=== PATIENT | male | born 1955 | race Caucasian/White ===

== ENCOUNTER → 2022-09-10 09:38 | Outpatient (BNVA) | payer MEDICARE, SELFPAY | PROVIDERS: Family Provider Family Medicine; PCP Nurse Practitioner Family; Visit Provider Thoracic Surgery (Cardiothoracic Vascular Surgery) | DX: I96 Gangrene, not elsewhere classified (principal); L89.892 Pressure ulcer of other site, stage 2 | CPT/HCPCS: 11042; 99213 ==

== ENCOUNTER 2023-02-13 10:14 | Outpatient (CLI) | payer MEDICARE, SELFPAY ==
[2023-02-13 11:53] LABS: Vancomycin Trough 39.7 ug/mL (10-15)
== END 2023-02-13 10:15 | disposition home or self-care (01) ==
PROVIDERS: Family Provider Family Medicine; PCP Nurse Practitioner Family; Visit Provider Student in an Organized Health Care Education/Training Program
DX: Z51.81 Encounter for therapeutic drug level monitoring (principal); Z79.2 Long term (current) use of antibiotics
CPT/HCPCS: 80202

== ENCOUNTER 2023-05-03 13:00 | Emergency (ER) | payer MEDICARE, MEDICAID, SELFPAY ==
[2023-05-03 13:03] VITALS: BP 144/78; PULSE 76; RESP 18; TEMP 36.8; O2SAT 98
--- NOTE | 2023-05-03 13:16 | ED_ITS ---
HPI - Male Genitourinary General: Chief complaint: Urogenital-Male Stated complaint: Landers- Bleeding Time Seen by Provider: 05/03/23 13:03 Source: patient Mode of arrival: EMS Limitations: no limitations History of Present Illness: Patient is a 68-year-old male who presents to the ED today with a complaint of penile bleeding and clogging Landers catheter. Patient arrives from his [place] correction and according to correction report patient's Landers has had to be changed multiple times over the past few days secondary to bleeding and clotting. Patient states he has had the Landers for a few weeks stating it was placed in attempts to help get a sacral ulcer to heal. Patient is wheelchair/bed bound due to bilateral Charcot deformities. long term states they removed catheter today in attempts to change and was unable to advance a new one. Complaint: other (hematuria/clots; clogged landers catheter) Onset (ago): day(s) Location: penis Context: indwelling catheter Associated symptoms: Reports hematuria; Deny vomiting Related Data: Sexually active: No Review of Systems Const: Denies: fever(s), chills, body aches, fatigue or malaise Card: Denies: chest pain Resp: Denies: dyspnea GI: Denies: abdominal pain, vomiting or diarrhea : Reports: hematuria; Denies: flank pain, testicular pain or scrotal swelling Musc: Denies: back pain Physical Exam Const: COMMON NORMALS: no acute distress, patient oriented x3, no limitations and alert GENERAL APPEARANCE: cooperative ORIENTATION/CONSCIOUSNESS: Yes awake, Yes oriented to person, Yes oriented to place and Yes oriented to time Resp: COMMON NORMALS: normal respiratory effort and clear to auscultation bilaterally AUSCULTATION: clear to auscultation bilaterally Cardio: COMMON NORMALS: regular rate and regular rhythm RATE: regular rate RHYTHM: regular rhythm GI: COMMON NORMALS: Normal to inspection, nondistended, normoactive bowel sounds present, Soft to palpation and non-tender PALPATION: Yes Soft to palpation : COMMON NORMALS: Yes no CVA tenderness BLADDER/KIDNEY EXAM: Yes no CVA tenderness PENIS: other (split glans) MEATUS: Blood at meatus present (blood/clot at urethral meatus ) SCROTUM: Yes testes descended bilaterally TESTES: Yes testicular lie normal Back/Pelvis: COMMON NORMALS: no CVA tenderness Neuro: COMMON NORMALS: patient oriented x3 SENSORIUM/ORIENTATION: Yes alert, Yes oriented to person, Yes oriented to place and Yes oriented to time Course Consultations: Consultation #1: [facility]-will accept patient Vital Signs: Vital signs: Vital Signs Temperature 98.2 F 05/03/23 13:03 Pulse Rate 71 05/03/23 16:00 Respiratory Rate 18 05/03/23 13:03 Blood Pressure 131/70 05/03/23 16:00 Pulse Oximetry 98 05/03/23 16:00 Oxygen Delivery Me thod Room Air 05/03/23 16:00 MDM - Male Medical Decision Making Attempted Landers insertion for bladder irrigation but we were not able to advance Landers. Bedside ultrasound imaging shows Landers not being able to advance into the bladder. CT imaging was thus obtained showing a 6 x 4 cm bladder mass that is suspicious for invasive prostate neoplasm versus bladder mass. He has acute appearing blood products involving the urethra from recent instrumentation. He has bilateral hydronephrosis and ureterectasis with evidence of bladder outlet obstruction. At this point we do not have urology and patient will require transfer. I have spoken to [facility] who will accept patient Lab Data 05/03/23 13:33 05/03/23 13:33 Laboratory Results WBC 11.96 10^3/uL (3.29-11.43) H 05/03/23 13:33 RBC 4.39 10^6/uL (3.85-5.65) 05/03/23 13:33 Hgb 12.40 g/dL (11.27-16.99) 05/03/23 13:33 Hct 39.3 % (37-53) 05/03/23 13:33 MCV 89.5 fl (82-101) 05/03/23 13:33 MCH 28.2 pg (27-33) 05/03/23 13:33 MCHC 31.6 g/dL (30-55) 05/03/23 13:33 RDW 17.1 % (12.1-15.1) H 05/03/23 13:33 Plt Count 95 10^3/cmm (157-399) L 05/03/23 13:33 MPV 12.5 fL (7.4-10.4) H 05/03/23 13:33 Neut % (Auto) 80.2 % 05/03/23 13:33 Lymph % (Auto) 9.9 % 05/03/23 13:33 [place] % (Auto) 8.3 % 05/03/23 13:33 Eos % (Auto) 0.5 % 05/03/23 13:33 Baso % (Auto) 0.3 % 05/03/23 13:33 Neut # (Auto) 9.61 10^3/uL (1.8-7.7) H 05/03/23 13:33 Lymph # (Auto) 1.2 10^3/uL (0.8-4.8) 05/03/23 13:33 [place] # (Auto) 1.0 10^3/uL (0.2-0.9) H 05/03/23 13:33 Eos # (Auto) 0.1 10^3/uL (0.0-0.8) 05/03/23 13:33 Baso # (Auto) 0.0 10^3/uL (0.0-0.1) 05/03/23 13:33 Nucleated RBC % (auto) 0 % 05/03/23 13:33 Nucleated RBCs # 0.0 /100WBC 05/03/23 13:33 Sodium 131 mmol/L (136-145) L 05/03/23 13:33 Potassium 4.1 mmol/L (3.5-5.1) 05/03/23 13:33 Chloride 95 mmol/L (98-107) L 05/03/23 13:33 Carbon Dioxide 28 mmol/L (22-29) 05/03/23 13:33 Anion Gap 12.1 (5-19) 05/03/23 13:33 BUN 24 mg/dL (8-23) H 05/03/23 13:33 Creatinine 0.9 mg/dL (0.7-1.2) 05/03/23 13:33 GFR Calculation 83.7 mL/min (90-130) L 05/03/23 13:33 Glucose 112 mg/dL (65-115) 05/03/23 13:33 Calculated Osmolality 277 mOsm/kg (285-295) L 05/03/23 13:33 Calcium 8.8 mg/dL (8.5-10.5) 05/03/23 13:33 Total Bilirubin 1.3 mg/dL (0.15-1.2) H 05/03/23 13:33 AST 39 U/L (0-40) 05/03/23 13:33 ALT 48 U/L (0-41) H 05/03/23 13:33 Alkaline Phosphatase 108 U/L (40-130) 05/03/23 13:33 Total Protein 7.8 g/dL (6.6-8.7) 05/03/23 13:33 Albumin 3.1 g/dL (3.5-5.2) L 05/03/23 13:33 Globulin 4.7 g/dL (1.3-4.6) H 05/03/23 13:33 Discharge Plan Discharge Patient Disposition: Xfer Short-Term Hosp Clinical Impression: Bladder outlet obstruction, Acute urinary retention, Bladder mass Condition: Stable Referrals: Meng Herrera FNP [Primary Care Provider] - Coding Level of Care Code ED Regulatory Manager for [facility]
[2023-05-03 13:47] LABS: Basophils % 0.3 %; Eosinophils # 0.1 10^3/uL (0.0-0.8); Eosinophils % 0.5 %; Hematocrit 39.3 % (37-53); Lymphocytes # 1.2 10^3/uL (0.8-4.8); Lymphocytes % 9.9 %; Mean Corpuscular HGB Conc 31.6 g/dL (30-55); Mean Corpuscular Hemoglobin 28.2 pg (27-33); Mean Corpuscular Volume 89.5 fl (82-101); Mean Platelet Volume 12.5 fL (7.4-10.4); Monocytes % 8.3 %; Neutrophils # 9.61 10^3/uL (1.8-7.7); Neutrophils % 80.2 %; Nucleated Red Blood Cells % 0 %; Platelet Count 95 10^3/cmm (157-399); Red Blood Count 4.39 10^6/uL (3.85-5.65); Red Cell Distribution Width 17.1 % (12.1-15.1); White Blood Count 11.96 10^3/uL (3.29-11.43)
[2023-05-03 14:06] LABS: Alanine Aminotransferase 48 U/L (0-41); Albumin Level 3.1 g/dL (3.5-5.2); Alkaline Phosphatase 108 U/L (40-130); Aspartate Amino Transferase 39 U/L (0-40); Blood Urea Nitrogen 24 mg/dL (8-23); Calcium 8.8 mg/dL (8.5-10.5); Carbon Dioxide 28 mmol/L (22-29); Chloride 95 mmol/L (98-107); Globulin 4.7 g/dL (1.3-4.6); Glomerular Filtration Rate 83.7 mL/min (90-130); Glucose 112 mg/dL (65-115); Osmolality Calculated 277 mOsm/kg (285-295); Sodium 131 mmol/L (136-145); Total Bilirubin 1.3 mg/dL (0.15-1.2); Total Protein 7.8 g/dL (6.6-8.7)
[2023-05-03 14:09] LABS: Anion Gap 12.1 (5-19); Potassium 4.1 mmol/L (3.5-5.1)
--- NOTE | 2023-05-03 14:49 | CT_ITS ---
WS: [id number] CT ABDOMEN PELVIS TECHNIQUE: Contrast-enhanced CT of the abdomen and pelvis with coronal and sagittal reformatted image s. CLINICAL INFORMATION: gross hematuria, cannot place landers COMPARISON: None. DLP: 1377.[address] scans at [facility] use at least one of these dose optimization techniques: automated e xposure control; mA and/or kV adjustment per patient size (includes targeted exams where dose is matc hed to clinical indication); or iterative reconstruction. FINDINGS: Lung bases are well aerated. Cirrhotic configuration to the liver. Enlarged LEFT hepatic lobe. Mild s plenomegaly. Portal vein and splenic vein appear patent. Splenic artery calcification. Normal gallbla dder. Normal caliber abdominal aorta. Aortic calcification. Normal renal parenchymal enhancement with parenchymal scarring. Mild bilateral hydronephrosis. Mild RIGHT ureterectasis. Mild LEFT ureterectas is. Diffuse bladder wall thickening with air in the nondependent bladder dome. Enlarged prostate with evidence of bladder outlet obstruction. Prostate measures 2.9 x 4.3 cm. Recomm end correlation PSA. Enhancing bladder mass in the dependent bladder measuring 6.1 x 3.9 cm suspiciou s for invasive prostate neoplasm versus bladder mass. Recommend correlation with cystoscopy. Small amount of acute appearing blood products involving the urethra from recent instrumentation. Sig moid diverticulosis. No evidence of acute diverticulitis. Distal sigmoid constipation. Normal caliber abdominal aorta. No abdominal or pelvic lymphadenopathy. No inguinal lymphadenopathy. IMPRESSION: 1. Mild bilateral hydronephrosis and ureterectasis worse in the RIGHT with evidence of bladder outle t obstruction. Enlarged prostate with adjacent enhancing intraluminal bladder mass measuring 6.0 x 3. 9 cm suspicious for invasive prostate neoplasm or bladder neoplasm. Recommend correlation with cystos copy. 2. Mild diffuse bladder wall thickening with a small amount of nondependent air in the bladder. 3. Blood products along the urethra compatible with recent instrumentation. 4. Enlarged cirrhotic liver. 5. Sigmoid constipation. 6. No evidence of abdominal pelvic or inguinal lymphadenopathy. Attempted notification NANCY Andujar at 05/03/2023 3:39 PM.
[2023-05-03] MEDS: iohexol 350 mg/mL 500 mL Btl (per mL) IV (15:02)
[2023-05-03 16:00] VITALS: BP 131/70; PULSE 71; O2SAT 98
[2023-05-03 16:24] VITALS: RESP 18
[2023-05-03] MEDS: ondansetron 2 mg/ML SDV 2 mL 4 MG IVP (16:24)
[2023-05-03] MEDS: morphine 4 mg/mL SDV 1 mL IVP (16:24)
--- NOTE | 2023-05-03 18:21 | PC.NURSE ---
REPORT CALLED TO JHOAN HUGGINS. PT WAITING ON TRANSPORTATION TO ACCEPTING FACILITY.
[2023-05-03 19:15] VITALS: RESP 19; O2SAT 96
[2023-05-03] MEDS: fentaNYL 50 mcg/mL INJ 2mL 75 MCG IVP (19:15)
[2023-05-03 20:00] VITALS: BP 110/71; PULSE 107; O2SAT 94
== END 2023-05-03 20:22 | disposition short-term general hospital (02) ==
PROVIDERS: Emergency Provider Physician Assistant; PCP Nurse Practitioner Family
DX: N32.0 Bladder-neck obstruction (principal); R33.9 Retention of urine, unspecified; N32.89 Other specified disorders of bladder
CPT/HCPCS: 36415; 74177; 80053; 85025; 96374; 96375; 99285; J2270; J2405; J3010; Q9967

== ENCOUNTER 2023-07-23 17:30 | Emergency (ER) | payer MEDICARE, MEDICAID, SELFPAY ==
--- NOTE | 2023-07-23 17:44 | CTR_ITS ---
PROCEDURE INFORMATION: Exam: CT Head Without Contrast Exam date and time: 07/23/2023 6:07 PM Age: 68 years old Clinical indication: Injury or trauma; Fall; Blunt trauma (contusions or hematomas); Consciousness not specified; Additional info: Pain trauma lac TECHNIQUE: Imaging protocol: Computed tomography of the head without contrast. Radiation optimization: All CT scans at this facility use at least one of these dose optimization techniques: automated exposure control; mA and/or kV adjustment per patient size (includes targeted exams where dose is matched to clinical indication); or iterative reconstruction. REPORTING DATA: Count of CT and Cardiac NM exams in prior 12 months: This patient has received [address] and 0 known cardiac nuclear medicine studies in the 12 months prior to the current study. COMPARISON: CT cervical spin wo con* [id number] 07/23/2023 6:07 PM RADIATION DOSE METRICS: Total DLP (mGy-cm): 981.4 FINDINGS: Brain: No acute intracranial abnormality. Cerebral ventricles: No ventriculomegaly. Paranasal sinuses: Partially visualized complete opacification of the right maxillary sinus with hyperdense fluid which may represent blood. Mastoid air cells: Visualized mastoid air cells are well aerated. Bones/joints: Right orbital floor fracture. Soft tissues: Soft tissue hematoma overlying the right orbit. The right globe appears intact. No intraconal fat stranding. CT/CT head wo con* [id number] IMPRESSION: 1. No acute intracranial abnormality. 2. Right orbital floor fracture. 3. Partially visualized complete opacification of the right maxillary sinus with hyperdense fluid which may represent blood. 4. Soft tissue hematoma overlying the right orbit. The right globe appears intact. No intraconal fat stranding.
--- NOTE | 2023-07-23 17:44 | CTR_ITS ---
PROCEDURE INFORMATION: Exam: CT Cervical Spine Without Contrast Exam date and time: 07/23/2023 6:07 PM Age: 68 years old Clinical indication: Neck pain TECHNIQUE: Imaging protocol: Computed tomography of the cervical spine without contrast. Radiation optimization: All CT scans at this facility use at least one of these dose optimization techniques: automated exposure control; mA and/or kV adjustment per patient size (includes targeted exams where dose is matched to clinical indication); or iterative reconstruction. REPORTING DATA: Count of CT and Cardiac NM exams in prior 12 months: This patient has received [address] and 0 known cardiac nuclear medicine studies in the 12 months prior to the current study. COMPARISON: CT head wo con* [id number] 07/23/2023 6:07 PM RADIATION DOSE METRICS: Total DLP (mGy-cm): 799.9 FINDINGS: Bones/joints: Multilevel anterior bridging osteophytes throughout the cervical and upper thoracic spine. Moderate to severe neural foraminal narrowing on left at C3-C4 and on the right at C5-C6 and on the left at C6-C7. Prominent posterior disc osteophyte complex C5-C6 with resulting spinal canal stenosis. Lungs: Lung apices are normal. Thyroid: Is a hypodense 1.3 cm nodule in the left thyroid lobe which is incompletely assessed on this examination and a dedicated thyroid ultrasound may be of benefit. Soft tissues: Unremarkable. CT/CT cervical spin wo con* [id number] IMPRESSION: Multilevel severe degenerative disc disease throughout the cervical spine including a prominent posterior disc osteophyte complex at C5-C6 with resulting spinal canal stenosis. COMMENTS: Consistent with the [employer]'s Incidental Findings Committee white paper (J Am Samantha Radiol 2015): In patients aged 35 years and older with an incidental thyroid nodule equal to or greater than 1.[address], MRI or extrathyroidal US, further evaluation with dedicated thyroid US is recommended for patients with normal life expectancy and without comorbidities. For smaller nodules without suspicious features, no further evaluation or follow up is recommended.
--- NOTE | 2023-07-23 17:46 | W.ED.FALL ---
HPI - Fall General: Chief Complaint: Fall Stated Complaint: RIGHT EYE/LEFT HAND LAC S/P FALL Time Seen by Provider: 07/23/23 17:32 History of Present Illness: Patient is a 68-year-old man that fell forward from the wheelchair striking his face on a wall. Patient denies LOC. He is unsure if he uses anticoagulation He has a laceration over the right brow and a skin tear to the left wrist Associated symptoms-after fall: Denies abdominal pain, chest pain, confusion, difficulty walking, headache(s), hematuria or neck pain Review of Systems General: Reports: 10 or more systems reviewed and unremarkable except in HPI and below Const: Denies: fever(s), chills, change in appetite, change in weight, fatigue or malaise Eyes: Denies: change in vision, eye discomfort, eye discharge or eye redness ENMT: Denies: throat pain, enlarged tonsils, odynophagia, hoarseness, ear or mastoid pain, ear discharge, change in hearing, tinnitus, nasal discharge, nasal congestion, post nasal drip or sinus pain Card: Denies: chest pain, palpitations, irregular heart rhythm, edema, dyspnea on exertion, orthopnea or leg pain with exertion Resp: Denies: dyspnea, productive cough, non-productive cough, wheezing, stridor or chest congestion GI: Denies: abdominal pain, nausea, vomiting, dysphagia, diarrhea, constipation, bloating, GI cramping or hematochezia : Denies: flank pain, dysuria, urinary frequency, urinary urgency, urinary hesitancy, oliguria or hematuria Musc: Denies: neck pain, back pain, extremity pain, joint pain, joint swelling, joint redness, joint warmth or muscle weakness Skin/Breast: Denies: rash, pruritus, erythema, photosensitivity or new lesions Neuro: Denies: headache(s), numbness in extremities, weakness in extremities, sensory changes, lack of coordination, difficulty walking, frequent falls, dizziness, confusion, Slurred speech present, difficulty communicating thoughts, seizure-like activity or involuntary movements Endo: Denies: polyuria, polydipsia or tired all the time [place]/Lymph: Denies: easy bruising or easy bleeding Physical Exam Const: COMMON NORMALS: no acute distress, patient oriented x3 and alert GENERAL APPEARANCE: cooperative ORIENTATION/CONSCIOUSNESS: Yes awake, Yes oriented to person, Yes oriented to place and Yes oriented to time HENMT: COMMON NORMALS: normocephalic and atraumatic HEAD & SCALP: normocephalic and atraumatic FACE & SINUS: normal facial exam MOUTH: Normal oral and palatal mucosa present THROAT: posterior oropharynx normal Eye: COMMON NORMALS: Equal, round and reactive pupils present, EOMs intact bilaterally, conjunctivae normal and no scleral icterus GENERAL EYE: appearance normal, both eyes and all related structures ALIGNMENT: Yes alignment normal PERIORBITAL: periorbital findings normal CONJUNCTIVA: Yes conjunctivae normal PUPIL: Yes Equal, round and reactive pupils present Neck/C-Spine: COMMON NORMALS: full ROM GENERAL: Yes normal visual inspection Lymph: LYMPHATIC: no lymphadenopathy noted Chest: COMMONS NORMALS: normal inspection of the chest Breast/axilla inspection: Yes no chest deformity, asymmetry, normal contours, no nodules, masses, tenderness Resp: COMMON NORMALS: normal respiratory effort, No retractions, No use of accessory muscles and clear to auscultation bilaterally EFFORT & INSPECTION: Yes able to speak in complete sentences and Yes symmetric chest movement AUSCULTATION: clear to auscultation bilaterally Cardio: COMMON NORMALS: regular rate, regular rhythm and Peripheral pulses 2+ throughout RATE: regular rate RHYTHM: regular rhythm PERIPHERAL PULSES: Peripheral pulses 2+ throughout GI: COMMON NORMALS: Normal to inspection, nondistended, normoactive bowel sounds present, Soft to palpation, non-tender and No hepatosplenomegaly present INSPECTION: Yes normal to inspection AUSCULTATION: Yes normoactive bowel sounds PALPATION: Yes Soft to palpation and Yes No hepatosplenomegaly present RECTAL EXAM: Yes deferred Extremity: COMMON NORMALS: normal to inspection GENERAL: Yes normal exam except as noted Neuro: COMMON NORMALS: patient oriented x3 SENSORIUM/ORIENTATION: Yes alert, Yes oriented to person, Yes oriented to place and Yes oriented to time CRANIAL NERVES: Yes CN normal except as noted Psych: COMMON NORMALS: mental status grossly normal, Normal thought process present, cooperative, activity/motor behavior normal, denies homicidal ideation and denies suicidal ideation THOUGHT PROCESS: Normal thought process present Skin: COMMON NORMALS: turgor normal SKIN IMAGES (MALE): 1. 3 cm lunate shaped laceration with underlying hematoma. No active bleeding 2. 10x 6 skin tear. no active bleeding 3. 2cm skin tear GENERAL SKIN EXAM: turgor normal TRAUMA: laceration and other (Skin tear) MDM - Fall Medical Decision Making Patient was evaluated in the emergency department after a fall from a wheelchair striking his face on a wall. Patient underwent CT imaging of his head and cervical spine. Imaging of the was unremarkable. Cervical spine CT revealed multilevel degenerative changes with severe spinal stenosis at C5/C6 due to a posterior disc osteophyte complex. There is a incidental finding of thyroid nodule measuring 1.3cm The CT head did reveal parts of the facial structures which revealed a displaced right orbital floor fracture and complete opacification of the right maxillary sinus. I spoke with Dr. Greenfield of the center for plastic surgery at [facility]. She will be happy to see the patient this . He needs to call Tuesday for an appointment. Furthermore, Dr. Greenfield is recommending patient follow-up with ophthalmology for a formal exam prior to being seen by Dr. Greenfield. Patient's left wrist skin tear was cleansed and covered. The laceration to the right brow was cleansed and approximated using Steri-Strips at patient's request Lab Data Radiology Impressions Cervical Spine CT 07/23/23 17:44 IMPRESSION: Multilevel severe degenerative disc disease throughout the cervical spine including a prominent posterior disc osteophyte complex at C5-C6 with resulting spinal canal stenosis. COMMENTS: Consistent with the [employer]'s Incidental Findings Committee white paper (J Am Samantha Radiol 2015): In patients aged 35 years and older with an incidental thyroid nodule equal to or greater than 1.[address], MRI or extrathyroidal US, further evaluation with dedicated thyroid US is recommended for patients with normal life expectancy and without comorbidities. For smaller nodules without suspicious features, no further evaluation or follow up is recommended. Head CT 07/23/23 17:44 IMPRESSION: 1. No acute intracranial abnormality. 2. Right orbital floor fracture. 3. Partially visualized complete opacification of the right maxillary sinus with hyperdense fluid which may represent blood. 4. Soft tissue hematoma overlying the right orbit. The right globe appears intact. No intraconal fat stranding. Face CT 07/23/23 19:21 IMPRESSION: 1. Displaced right orbital floor fracture. 2. Soft tissue hematoma overlying the right orbit with no underlying orbital fracture. 3. Complete opacification of the right maxillary sinus with hyperdense fluid which may represent blood. All radiology interpretation(s) finalized by discharge Discharge Plan Discharge Patient Disposition: Home Clinical Impression: Closed fracture of right orbital floor, Thyroid nodule, Hematoma, Laceration, Cervical spinal stenosis Condition: Stable Prescriptions: No Action acetaminophen 325 mg Tablet 325 - 500 mg PO QID PRN (Reason: Pain) ropinirole 1 mg Tablet 1 mg PO BEDTIME trazodone 50 mg Tablet 50 mg PO BEDTIME hydrocodone-acetaminophen 5-325 mg tablet 1 tab PO Q4H PRN (Reason: Pain) prednisone 5 mg Tablet 5 mg PO DAILY oxycodone-acetaminophen 5-325 mg Tablet 1 - 2 tab PO Q4H PRN (Reason: Pain) alprazolam 0.5 mg Tablet 0.5 mg PO Q6H PRN (Reason: Anxiety) tamsulosin 0.4 mg capsule 0.4 mg PO BEDTIME benzonatate 100 mg Capsule 100 mg PO Q8H PRN (Reason: Cough) pantoprazole 40 mg Tablet,Delayed Release (Dr/Ec) 40 mg PO DAILY nitroglycerin 0.4 mg Tablet, Sublingual 0.4 mg SUBLINGUAL Q5M PRN (Reason: Chest Pain) Rx Instructions: do not exceed 3 doses per episode gabapentin 300 mg Capsule 300 mg PO BID nystatin 100,000 unit/gram Powder See Rx Instructions .ROUTE .COMPLEX Rx Instructions: 1 applic topically to abdominal folds daily and evening shift for skin redness/ Maalox Maximum Strength 400-400-40 mg/5 mL Suspension 10 ml PO Q6H PRN (Reason: Indigestion) bisacodyl 5 mg Tablet 5 mg PO DAILY PRN (Reason: Constipation) Theragran-M Tablet 1 tab PO DAILY Lexapro 20 mg Tablet 20 mg PO DAILY Voltaren 1 % Gel See Rx Instructions .ROUTE .COMPLEX Rx Instructions: 2 g topically ;apply to bilateral hands twice daily for prophylaxis Discharge Orders: Discharge ED (Routine); Ordered 07/23/23 Ordered By: César Angulo Referrals: Giuseppe Peterson [Physician] - Meng Herrera FNP [Physician [facility]] - Discharge Diet: Advance as tolerated Discharge Activity: Resume usual activity Patient Instructions: Facial Fracture (ED), Pain Management Activity Restrictions/Additional Instructions: You have a orbital floor fracture. I have spoken with Dr. Meaghan Greenfield of the [facility] in [place]. She will be happy to see you on morning. You need to call her office Tuesday to make an appointment for . She can be reached at [phone]. Her address is [address] [place] [address], [place] [address] Prior to being seen by her you need to be evaluated by ophthalmology. Please call Dr. Giuseppe Peterson office Tuesday to set up an appointment for evaluation. With regards to the cervical spine findings, you need to discuss these findings and your symptomatology with your primary care doctor. He will likely need an MRI of your cervical spine to further evaluate these findings. Please call Tuesday for an appointment You also need to speak with your primary care doctor about the thyroid nodule that was identified on CT imaging. Further diagnostics may be warranted. Keep your skin tear on your wrist clean and dry. Daily dressing changes as necessary. Leave the Steri-Strips to the laceration over your right brow intact. These will come off in time. Please return to the emergency department for new, concerning, worsening symptoms Coding Level of Care Code ED Director Of Medical Staff Services for [facility]
[2023-07-23] MEDS: tetanus-dipt-pertussis 0.5 mL SDV IM (19:03)
--- NOTE | 2023-07-23 19:21 | CTR_ITS ---
PROCEDURE INFORMATION: Exam: CT Maxillofacial Without Contrast Exam date and time: 07/23/2023 7:28 PM Age: 68 years old Clinical indication: Injury or trauma; Blunt trauma (contusions or hematomas); Orbit/periorbital and maxilla; Right; Patient HX: Fall face first out of wheel chair. Orbital floor fracture with fluid filled maxillary sinus noted on head CT. ; Additional info: Facial fracture TECHNIQUE: Imaging protocol: Computed tomography of the face without contrast. Radiation optimization: All CT scans at this facility use at least one of these dose optimization techniques: automated exposure control; mA and/or kV adjustment per patient size (includes targeted exams where dose is matched to clinical indication); or iterative reconstruction. REPORTING DATA: Count of CT and Cardiac NM exams in prior 12 months: This patient has received [address] and 0 known cardiac nuclear medicine studies in the 12 months prior to the current study. COMPARISON: CT head wo con* [id number] 07/23/2023 6:07 PM RADIATION DOSE METRICS: Total DLP (mGy-cm): 583.88 FINDINGS: Orbital cavities: Orbits are normal. Globes are unremarkable. Bones/joints: Bridging anterior osteophytes at C3-C4. Displaced right orbital floor fracture. Paranasal sinuses: Complete opacification of the right maxillary sinus with hyperdense fluid which may represent blood. Soft tissues: Soft tissue hematoma overlying the right orbit with no underlying orbital fracture. CT/CT facial bones wo con* [id number] IMPRESSION: 1. Displaced right orbital floor fracture. 2. Soft tissue hematoma overlying the right orbit with no underlying orbital fracture. 3. Complete opacification of the right maxillary sinus with hyperdense fluid which may represent blood.
--- NOTE | 2023-07-27 10:01 | DCPLANNER ---
Message sent to Ophthalmology for follow up -sent to Giuspepe Peterson and Nicholas Rodarte
== END 2023-07-23 22:11 | disposition home or self-care (01) ==
PROVIDERS: Emergency Provider Nurse Practitioner
DX: S02.31XA Fracture of orbital floor, right side, initial encounter for closed fracture (principal); E04.1 Nontoxic single thyroid nodule; M48.02 Spinal stenosis, cervical region; S05.11XA Contusion of eyeball and orbital tissues, right eye, initial encounter; S01.81XA Laceration without foreign body of other part of head, initial encounter; W05.0XXA Fall from non-moving wheelchair, initial encounter; Z23 Encounter for immunization
CPT/HCPCS: 70450; 70486; 72125; 90471; 90715; 99284

== ENCOUNTER 2023-08-26 21:30 | Emergency (ER) | payer MEDICARE, MEDICAID, SELFPAY ==
[2023-08-26 21:38] VITALS: BP 148/88; PULSE 83; RESP 20; TEMP 36.6; O2SAT 97; BMI 29.7
--- NOTE | 2023-08-26 22:22 | ED.C_ITS ---
HPI - Psych General: Chief Complaint: Psychiatric Symptoms Stated Complaint: behavioral problems Time Seen by Provider: 08/26/23 21:34 History of Present Illness: 68-year-old male with anxiety, schizophrenia and mood disorder presents emergency room from local group home for nonspecific reason. According to EMS the group home reveals that patient was mad at the provider this morning but since ideation, homicidal ideation or hallucination at this time. Upon present emergency room, patient is awake and alert x 4 denies any chest pain, shortness of breath, abdominal pain, back pain, no blurry vision or change in vision. Any suicidal ideation or homicidal ideation at this time. Patient declining further testing and would like to be discharged back to the group home. Associated symptoms: Deny depression Review of Systems General: Reports: 10 or more systems reviewed and unremarkable except in HPI and below Const: Denies: fever(s), chills or body aches Card: Denies: chest pain, palpitations, irregular heart rhythm, edema, swelling of feet/ankles or lightheadedness Resp: Denies: dyspnea, productive cough, non-productive cough, wheezing or stridor GI: Denies: abdominal pain, nausea, vomiting, hematemesis, coffee ground emesis, dysphagia, heartburn, early satiety or diarrhea : Denies: flank pain, difficulty urinating, dysuria, urinary frequency, urinary urgency, urinary hesitancy, urinary dribbling or difficulty starting urination Musc: Denies: neck pain, back pain, extremity pain, extremity swelling, joint pain or joint swelling Skin/Breast: Denies: rash, pruritus, erythema or photosensitivity Neuro: Denies: headache(s), numbness in extremities, weakness in extremities, sensory changes, lack of coordination, difficulty walking, frequent falls, dizziness, vertigo, confusion or behavioral changes Psych: Denies: anxiety, depression, mood swings, panic attacks, sleeping less, sleeping more or hopelessness PFS ED PFSH: Medical History (Updated 08/26/23 @ 22:18 by Sherry Wright MD) Psychiatric care Physical Exam Const: COMMON NORMALS: no acute distress, average body habitus, patient oriented x3, no limitations, healthy appearing, alert and well nourished Neck/C-Spine: COMMON NORMALS: full ROM, no lymphadenopathy, supple, no meningeal signs, no JVD, Thyroid normal and No carotid bruits THYROID: Thyroid normal Chest: COMMONS NORMALS: normal inspection of the chest, normal palpation of entire chest wall, normal inspection of the breasts and normal palpation of the breasts Breast/axilla inspection: Yes normal inspection of the breasts BREAST/AXILLA PALPATION: Yes normal palpation of the breasts Resp: COMMON NORMALS: normal respiratory effort, No retractions, No use of accessory muscles, clear to auscultation bilaterally and percussion normal AUSCULTATION: clear to auscultation bilaterally PERCUSSION: percussion normal Cardio: COMMON NORMALS: no JVD GI: COMMON NORMALS: Normal to inspection, nondistended, normoactive bowel sounds present, Soft to palpation, non-tender, No hepatosplenomegaly present, no masses and no bruits PALPATION: Yes Soft to palpation and Yes No hepatosplenomegaly present Extremity: COMMON NORMALS: normal to inspection, full ROM, capillary refill normal, no joint enlargement, no clubbing, cyanosis or edema, no calf tenderness and no pedal edema Neuro: COMMON NORMALS: patient oriented x3 SENSORIUM/ORIENTATION: Yes alert MENINGEAL SIGNS: Yes no meningeal signs Psych: COMMON NORMALS: mental status grossly normal, Normal thought process present, cooperative, normal affect, speech normal, activity/motor behavior normal, denies hallucinations, denies homicidal ideation and denies suicidal ideation APPEARANCE: Yes grossly normal ATTITUDE: Yes calm, No Withdrawn affect present, No bizarre, No uncooperative, No evasive, No Guarded attititude/behavior present and No Belligerent attititude/behavior present ACTIVITY/MOTOR BEHAVIOR: Yes appropriate eye contact SPEECH: Yes normal speech MOOD & AFFECT: No depressed mood, No anxious, No euphoric, No irritable, No sad, No tearful, No fearful and No Labile affect present THOUGHT PROCESS: Normal thought process present THOUGHT CONTENT: Yes Normal thought content present ATTENTION/CONCENTRATION: Yes attention grossly intact Course Vital Signs: Vital signs: Vital Signs Temperature 97.8 F 08/26/23 21:38 Pulse Rate 94 08/27/23 00:51 Respiratory Rate 16 08/27/23 00:51 Blood Pressure 158/137 08/27/23 00:51 Pulse Oximetry 94 08/27/23 00:51 MDM - Psych Medical Decision Making Patient made comfortable emergency room. No acute distress. He continues to d enies any suicidal ideation homicidal ideation, headache or blurry vision at this time. Patient refused any further testing at this time would like to be discharged back to group home. Several attempts were made by the charge nurse to contact group home for any further information or requirements needed for patient's management. Differential Diagnosis Likely acute psychosis, chronic schizophrenia, suicidal ideation, bipolar disorder, depression, drug-induced psychotic disorder and acute anxiety No radiology studies performed this visit Discharge Plan Discharge Patient Disposition: Home Clinical Impression: Mood disorder Condition: Stable Prescriptions: No Action acetaminophen 325 mg Tablet 325 - 500 mg PO QID PRN (Reason: Pain) ropinirole 1 mg Tablet 1 mg PO BEDTIME trazodone 50 mg Tablet 50 mg PO BEDTIME hydrocodone-acetaminophen 5-325 mg tablet 1 tab PO Q4H PRN (Reason: Pain) prednisone 5 mg Tablet 5 mg PO DAILY oxycodone-acetaminophen 5-325 mg Tablet 1 - 2 tab PO Q4H PRN (Reason: Pain) alprazolam 0.5 mg Tablet 0.5 mg PO Q6H PRN (Reason: Anxiety) tamsulosin 0.4 mg capsule 0.4 mg PO BEDTIME benzonatate 100 mg Capsule 100 mg PO Q8H PRN (Reason: Cough) pantoprazole 40 mg Tablet,Delayed Release (Dr/Ec) 40 mg PO DAILY nitroglycerin 0.4 mg Tablet, Sublingual 0.4 mg SUBLINGUAL Q5M PRN (Reason: Chest Pain) Rx Instructions: do not exceed 3 doses per episode gabapentin 300 mg Capsule 300 mg PO BID nystatin 100,000 unit/gram Powder See Rx Instructions .ROUTE .COMPLEX Rx Instructions: 1 applic topically to abdominal folds daily and evening shift for skin redness/ Maalox Maximum Strength 400-400-40 mg/5 mL Suspension 10 ml PO Q6H PRN (Reason: Indigestion) bisacodyl 5 mg Tablet 5 mg PO DAILY PRN (Reason: Constipation) Theragran-M Tablet 1 tab PO DAILY Lexapro 20 mg Tablet 20 mg PO DAILY Voltaren 1 % Gel See Rx Instructions .ROUTE .COMPLEX Rx Instructions: 2 g topically ;apply to bilateral hands twice daily for prophylaxis Discharge Orders: Discharge ED (Routine); Ordered 08/26/23 Ordered By: Sherry Wright Discharge Diet: Advance as tolerated Discharge Activity: Resume usual activity Patient Instructions: Opioid Safety, Pain Management Coding Level of Care Code 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
--- NOTE | 2023-08-26 23:07 | PC.NURSE ---
I have called and spoke with the charge nurse at [facility], to get some background on why the patient was sent to our ER. I explained that the doctor in the ER has evaluated the patient and has no reason to work him up or send him to [place] for psych evaluation. The charge nurse at [facility] states that their facility contacted [facility] this morning after the patient became angry with his doctor and cursed and threatened to run over his foot with a wheelchair. The charge nurse stated that he has been accepted over at [facility] for psych evaluation and he needs to go there. I then called and spoke to the charge nurse at [facility] whom states that they do not do direct admits and they were instructed at [facility] to send the patient to the local ER to be worked up for psychological evaluation. [facility] charge nurse also states that if our physician did not see any signs and symptoms of psych and did not see a reason to work him up then they would probably not take him there anyway. The charge nurse from [facility] stated that if the patient did not meet criteria, then he should be sent back to the snf. I have called to tell the charge nurse at [facility] what I discussed with [facility] and that we had also called the patients daughter who is his P.O.A. I explained to her that the family was fine with the patient being brought back to [facility] and that [facility] stated that if the patient did not meet psychological criteria for emergent admission that they would not take him there and he should be sent back to the snf. The charge nurse at [facility] states that she will have to call her test center administrator and her physician because she does not think they are going to take him back there.
--- NOTE | 2023-08-26 23:33 | PC.NURSE ---
I have spoke with the Charge nurse at [facility] and she states that she has spoken with her administration and they are okay with taking him back.
[2023-08-27 00:51] VITALS: BP 158/137; PULSE 94; RESP 16; O2SAT 94
== END 2023-08-27 01:04 | disposition home or self-care (01) ==
PROVIDERS: Emergency Provider Family Medicine
DX: F39 Unspecified mood [affective] disorder (principal)
CPT/HCPCS: 99281

== ENCOUNTER 2024-11-01 10:41 | Inpatient (IN) | payer MEDICARE, MEDICAID, SELFPAY ==
[2024-11-01 10:44] VITALS: BP 124/93; PULSE 93; RESP 16; TEMP 36.6; O2SAT 93; BMI 31.3
--- NOTE | 2024-11-01 10:57 | W.ED.MALEGU ---
HPI - Male Genitourinary General: Chief complaint: Urogenital-Male Stated complaint: groin pain Time Seen by Provider: 11/01/24 10:52 History of Present Illness: 69-year-old male presents emergency room via [facility] with complaints of groin pain. He has a history of kidney stones. He has peripheral neuropathy and he is incontinent of urine. He started having so suprapubic pain at the midline as well as some flank pain over the last 2 to 3 days. No hematuria that he has noted no diarrhea no chest pain or shortness of breath no other abdominal pain Associated symptoms: Deny dysuria Related Data Home Medications ?Medication ?Instructions ?Recorded ?Confirmed acetaminophen 325 mg tablet 325 - 500 mg PO QID PRN Pain 05/03/23 11/01/24 aluminum-mag hydroxide-simethicone 10 ml PO Q6H PRN Indigestion 05/03/23 11/01/24 400 mg-400 mg-40 mg/5 mL oral susp (Maalox Maximum Strength) bisacodyl 5 mg tablet 5 mg PO DAILY PRN Constipation 05/03/23 11/01/24 hydrocodone 5 mg-acetaminophen 325 1 tab PO Q4H PRN Pain 05/03/23 11/01/24 mg tablet nitroglycerin 0.4 mg sublingual 0.4 mg sublingual Q5M PRN Chest 05/03/23 11/01/24 tablet Pain tamsulosin 0.4 mg capsule 0.4 mg PO BEDTIME 05/03/23 11/01/24 amlodipine 5 mg tablet 5 mg PO DAILY 09/07/23 11/01/24 ondansetron HCl 4 mg tablet 4 mg PO Q8H PRN Nausea 10/03/24 11/01/24 allopurinol 100 mg tablet 100 mg PO DAILY 11/01/24 11/01/24 docusate sodium 100 mg capsule 100 mg PO DAILY 11/01/24 11/01/24 gabapentin 400 mg capsule 400 mg PO TID 11/01/24 11/01/24 sertraline 100 mg tablet (Zoloft) 100 mg PO DAILY 11/01/24 11/01/24 Previous Rx's ?Medication ?Instructions ?Recorded risperidone 0.5 mg tablet 0.5 mg PO BID #60 tabs 07/03/24 (Risperdal) ropinirole 4 mg tablet 4 mg PO .HS #30 tabs 07/03/24 trazodone 50 mg tablet 50 mg PO BEDTIME #30 tabs 10/03/24 ciprofloxacin HCl 500 mg tablet 500 mg PO BID #20 tabs 11/01/24 Allergies Allergy/AdvReac Type Severity Reaction Status Date / Time Penicillins Allergy Unknown Verified 10/03/24 10:31 Review of Systems Const: Denies: fever(s) or chills Card: Denies: chest pain Resp: Denies: dyspnea GI: Denies: abdominal pain : Denies: dysuria, urinary frequency or urinary urgency Musc: Denies: neck pain or back pain Skin/Breast: Denies: rash PFSH ED PFSH: Medical History (Updated 11/01/24 @ 16:30 by Donaldo Sue DO) Major depressive disorder, recurrent, severe with psychotic symptoms Psychiatric care Physical Exam Const: COMMON NORMALS: no acute distress GENERAL APPEARANCE: cooperative and comfortable ORIENTATION/CONSCIOUSNESS: Yes awake, Yes oriented to person, Yes oriented to place and Yes oriented to time HENMT: COMMON NORMALS: normocephalic, atraumatic and hearing grossly normal bilaterally HEAD & SCALP: normocephalic and atraumatic Resp: COMMON NORMALS: normal respiratory effort, No retractions, No use of accessory muscles and clear to auscultation bilaterally AUSCULTATION: clear to auscultation bilaterally Cardio: COMMON NORMALS: regular rate, regular rhythm and No murmurs present (Cardio) RATE: regular rate RHYTHM: regular rhythm GI: COMMON NORMALS: Soft to palpation and No hepatosplenomegaly present AUSCULTATION: Yes normoactive bowel sounds PALPATION: Yes Soft to palpation, No Tenderness to palpation present (GI), No Guarding due to palpation present (GI) and Yes No hepatosplenomegaly present Extremity: COMMON NORMALS: normal to inspection, capillary refill normal, no clubbing, cyanosis or edema, no calf tenderness and no pedal edema Neuro: SENSORIUM/ORIENTATION: Yes oriented to person, Yes oriented to place and Yes oriented to time Skin: COMMON NORMALS: no rashes or lesions noted GENERAL SKIN EXAM: no rashes or lesions noted Course Vital Signs: Vital signs: Vital Signs Temperature 98 F 11/01/24 10:44 Pulse Rate 84 11/01/24 17:30 Respiratory Rate 16 11/01/24 10:44 Blood Pressure 126/65 11/01/24 17:30 Pulse Oximetry 93 11/01/24 17:30 Oxygen Delivery Me thod Room Air 11/01/24 17:30 MDM - Male Medical Decision Making No fever although does have mild flank pain. No obstruction CT shows signs of pyelonephritis initially because white count was normal is planning on treating as an outpatient lactic came back slightly elevated we will put him on observation discussed Dr. Doe. IV fluids given blood pressure has been stable. Lactate minimally elevated Medical Records I reviewed the patient's medical records. Lab Data I reviewed the patient's lab results. 11/01/24 11:04 11/01/24 11:04 Radiology Impressions Abdomen/Pelvis CT 11/01/24 13:20 IMPRESSION: 1. Bilateral perinephric stranding. 2. More advanced fat stranding involving the RIGHT kidney, central renal pelvis and the RIGHT ureter. Highly suspect pyelonephritis. No obstructing calcifications are identified. Mild left-sided pyelonephritis without a ureteral obstruction. Ureters are mildly dilated with no obstructing stone. 3. Bilateral nonobstructing central renal calculi. No ureteral calcification. 4. Marked diffuse bladder wall thickening. Most likely outlet obstruction. 5. Cirrhosis with portal venous hypertension. Laboratory Results WBC 9.55 10^3/uL (3.29-11.43) 11/01/24 11:04 RBC 5.15 10^6/uL (3.85-5.65) 11/01/24 11:04 Hgb 15.40 g/dL (11.27-16.99) 11/01/24 11:04 Hct 46.1 % (37-53) 11/01/24 11:04 MCV 89.5 fl (82-101) 11/01/24 11:04 MCH 29.9 pg (27-33) 11/01/24 11:04 MCHC 33.4 g/dL (30-55) 11/01/24 11:04 RDW 15.4 % (12.1-15.1) H 11/01/24 11:04 Plt Count 159 10^3/cmm (157-399) 11/01/24 11:04 MPV 11.1 fL (7.4-10.4) H 11/01/24 11:04 Neut % (Auto) 84.6 % 11/01/24 11:04 Lymph % (Auto) 6.1 % 11/01/24 11:04 [place] % (Auto) 8.2 % 11/01/24 11:04 Eos % (Auto) 0.1 % 11/01/24 11:04 Baso % (Auto) 0.4 % 11/01/24 11:04 Neut # (Auto) 8.08 10^3/uL (1.8-7.7) H 11/01/24 11:04 Lymph # (Auto) 0.6 10^3/uL (0.8-4.8) L 11/01/24 11:04 [place] # (Auto) 0.8 10^3/uL (0.2-0.9) 11/01/24 11:04 Eos # (Auto) 0.0 10^3/uL (0.0-0.8) 11/01/24 11:04 Baso # (Auto) 0.0 10^3/uL (0.0-0.1) 11/01/24 11:04 Nucleated RBC % (auto) 0 % 11/01/24 11:04 Nucleated RBCs # 0.0 /100WBC 11/01/24 11:04 Sodium 139 mmol/L (136-145) 11/01/24 11:04 Potassium 3.8 mmol/L (3.5-5.1) 11/01/24 11:04 Chloride 102 mmol/L (98-107) 11/01/24 11:04 Carbon Dioxide 24 mmol/L (22-29) 11/01/24 11:04 Anion Gap 16.8 (5-19) 11/01/24 11:04 BUN 19 mg/dL (8-23) 11/01/24 11:04 Creatinine 0.8 mg/dL (0.7-1.2) 11/01/24 11:04 GFR Calculation 95.6 mL/min (90-130) 11/01/24 11:04 Glucose 111 mg/dL (65-115) 11/01/24 11:04 Calculated Osmolality 291 mOsm/kg (285-295) 11/01/24 11:04 Lactic Acid 2.5 mmol/L (0.5-2.2) H 11/01/24 16:12 Calcium 9.0 mg/dL (8.5-10.5) 11/01/24 11:04 Total Bilirubin 0.8 mg/dL (0.15-1.2) 11/01/24 11:04 AST 27 U/L (0-40) 11/01/24 11:04 ALT 23 U/L (0-41) 11/01/24 11:04 Alkaline Phosphatase 110 U/L (40-130) 11/01/24 11:04 Total Protein 8.7 g/dL (6.6-8.7) 11/01/24 11:04 Albumin 3.6 g/dL (3.5-5.2) 11/01/24 11:04 Globulin 5.1 g/dL (1.3-4.6) H 11/01/24 11:04 Urine Color Yellow (Yellow) 11/01/24 12:16 Urine Appearance Turbid (CLEAR) A 11/01/24 12:16 Urine pH 8.5 (5-7) A 11/01/24 12:16 Ur Specific [place] 1.013 (1.005-1.030) 11/01/24 12:16 Urine Protein 2+ (Negative) A 11/01/24 12:16 Urine Glucose (UA) Negative (Normal) 11/01/24 12:16 Urine Ketones Negative (Negative) 11/01/24 12:16 Urine Blood 3+ (Negative) A 11/01/24 12:16 Urine Nitrate Negative (Negative) 11/01/24 12:16 Urine Bilirubin Negative (Negative) 11/01/24 12:16 Urine Urobilinogen 1.0 mg/dL (Negative) 11/01/24 12:16 Ur Leukocyte Esterase 3+ (Negative) A 11/01/24 12:16 Urine RBC 80-100 /hpf (0-2) H 11/01/24 12:16 Urine WBC 25-40 /hpf (0-5) H 11/01/24 12:16 Ur Squamous Epith Cells 0-4 /hpf (0-5) H 11/01/24 12:16 Triple Phos Crystals 0-4 /hpf H 11/01/24 12:16 Amorphous Sediment Not Reportable 11/01/24 12:16 Urine Bacteria 2+ /hpf (NONE) H 11/01/24 12:16 Hyaline Casts 0-4 /lpf H 11/01/24 12:16 Urine Mucus 1+ /hpf 11/01/24 12:16 All radiology interpretation(s) finalized by discharge Discharge Plan Discharge Patient Disposition: Placed in Observation Clinical Impression: Pyelonephritis Condition: Stable Prescriptions: New ciprofloxacin HCl 500 mg tablet 500 mg PO BID Qty: 20 0RF No Action ropinirole 4 mg tablet 4 mg PO .HS Qty: 30 11RF risperidone [Risperdal] 0.5 mg tablet 0.5 mg PO BID Qty: 60 11RF ondansetron HCl 4 mg tablet 4 mg PO Q8H PRN (Reason: Nausea) trazodone 50 mg tablet 50 mg PO BEDTIME Qty: 30 11RF amlodipine 5 mg tablet 5 mg PO DAILY acetaminophen 325 mg Tablet 325 - 500 mg PO QID PRN (Reason: Pain) hydrocodone-acetaminophen 5-325 mg tablet 1 tab PO Q4H PRN (Reason: Pain) tamsulosin 0.4 mg capsule 0.4 mg PO BEDTIME nitroglycerin 0.4 mg Tablet, Sublingual 0.4 mg SUBLINGUAL Q5M PRN (Reason: Chest Pain) Rx Instructions: do not exceed 3 doses per episode alum-mag hydroxide-simeth [Maalox Maximum Strength] 400-400-40 mg/5 mL Suspension 10 ml PO Q6H PRN (Reason: Indigestion) bisacodyl 5 mg Tablet 5 mg PO DAILY PRN (Reason: Constipation) gabapentin 400 mg capsule 400 mg PO TID allopurinol 100 mg tablet 100 mg PO DAILY docusate sodium 100 mg Capsule 100 mg PO DAILY sertraline [Zoloft] 100 mg tablet 100 mg PO DAILY Discharge Diet: Usual diet Discharge Activity: Resume usual activity Patient Instructions: Opioid Safety, Pain Management, Pyelonephritis Activity Restrictions/Additional Instructions: Thank you for choosing [facility] for your healthcare needs today. It is very important that you follow up as instructed or that you return to the Emergency Department should you have concerns or if your condition changes or worsens in any way. You were seen in the emergency room with complaints of groin pain and flank pain. CT shows signs of pyelonephritis there is noes kidney stones or obstruction. Your white count is not elevated. You can be treated as an outpatient for this you are given initial dose of IV antibiotics here and discharged home on ciprofloxacin 500 mg twice a day for 10 days. Print Language: Nauruan Coding Level of Care Code ED Inspector Canned Food Reconditioning for Hair Chinchilla
[2024-11-01 11:13] LABS: Basophils % 0.4 %; Eosinophils % 0.1 %; Hematocrit 46.1 % (37-53); Lymphocytes # 0.6 10^3/uL (0.8-4.8); Lymphocytes % 6.1 %; Mean Corpuscular HGB Conc 33.4 g/dL (30-55); Mean Corpuscular Hemoglobin 29.9 pg (27-33); Mean Corpuscular Volume 89.5 fl (82-101); Mean Platelet Volume 11.1 fL (7.4-10.4); Monocytes # 0.8 10^3/uL (0.2-0.9); Monocytes % 8.2 %; Neutrophils # 8.08 10^3/uL (1.8-7.7); Neutrophils % 84.6 %; Nucleated Red Blood Cells % 0 %; Platelet Count 159 10^3/cmm (157-399); Red Blood Count 5.15 10^6/uL (3.85-5.65); Red Cell Distribution Width 15.4 % (12.1-15.1); White Blood Count 9.55 10^3/uL (3.29-11.43)
[2024-11-01 11:35] LABS: Alanine Aminotransferase 23 U/L (0-41); Albumin Level 3.6 g/dL (3.5-5.2); Alkaline Phosphatase 110 U/L (40-130); Anion Gap 16.8 (5-19); Aspartate Amino Transferase 27 U/L (0-40); Blood Urea Nitrogen 19 mg/dL (8-23); Carbon Dioxide 24 mmol/L (22-29); Chloride 102 mmol/L (98-107); Creatinine Clr Calc Pharmacy 92.2969; Globulin 5.1 g/dL (1.3-4.6); Glomerular Filtration Rate 95.6 mL/min (90-130); Glucose 111 mg/dL (65-115); Osmolality Calculated 291 mOsm/kg (285-295); Potassium 3.8 mmol/L (3.5-5.1); Sodium 139 mmol/L (136-145); Total Bilirubin 0.8 mg/dL (0.15-1.2); Total Protein 8.7 g/dL (6.6-8.7)
[2024-11-01 12:25] LABS: Bilirubin Urine Negative (Negative); Blood Urine 3+ (Negative); Glucose Urine UA Negative (Normal); Ketones Urine Negative (Negative); Leukocyte Esterase Urine 3+ (Negative); Nitrate Urine Negative (Negative); Protein Urine 2+ (Negative); Specific Gravity, Urine 1.013 (1.005-1.030); Urine Appearance Turbid (CLEAR); Urine Color Yellow (Yellow); pH Urine 8.5 (5-7)
[2024-11-01 12:28] LABS: UA Manual Slide Review YES
[2024-11-01 12:30] VITALS: BP 132/77; PULSE 89; O2SAT 93
[2024-11-01 13:03] LABS: Add Urine Microscopic? YES; UA Slide Review UA Slide Review Perf
[2024-11-01 13:05] LABS: RBC Urine 80-100 /hpf (0-2)
[2024-11-01 13:06] LABS: Add Urine Culture? Yes; Bacteria Urine 2+ /hpf; Hyaline Casts Urine 0-4 /lpf; Mucus Urine 1+ /hpf; Squamous Epithelial Cell Urine 0-4 /hpf (0-5); Triple Phosphate Crystal Urine 0-4 /hpf; WBC Urine 25-40 /hpf (0-5)
--- NOTE | 2024-11-01 13:20 | CT_ITS ---
WS: [id number] CT ABDOMEN AND PELVIS NONCONTRAST HISTORY: flank pain TECHNIQUE: Imaging performed through the abdomen and pelvis. Coronal and sagittal reformats are submitted. All CT scans at [facility] use at least one of these dose optimization techniques: automated exposure control; mA and/or kV adjustment per patient size (includes targeted exams where dose is matched to clinical indication); or iterative reconstruction. DLP: 504.52 mGy.cm COMPARISON: 05/03/2023 Lower thorax: Mild bronchiectasis medial RIGHT lower lobe. Heart size is normal. Small hiatal hernia. Liver: Normal size liver with surface nodularity. Caudate lobe is enlarged. Gallbladder: Small amount of increased density in the gallbladder may be stones or sludge. No adjacent inflammation. Common bile duct is not dilated. Pancreas: Normal size and attenuation. Normal pancreatic duct. No pancreatitis or mass. Spleen: Enlarged, 13.8 cm in length. Adrenal glands: Mild LEFT adrenal nodularity. Normal RIGHT adrenal gland. Right kidney: Perinephric stranding. Nonobstructing central renal calcifications. Mild periureteral stranding and dilatation of the RIGHT ureter. There is mild hazy attenuation in the central renal pelvis with stranding of the fat. No ureteral calcification. Left kidney: Moderate perinephric stranding with no hydronephrosis. There is a small extrarenal pelvis. Proximal ureter is slightly dilated but tapers rapidly. No stones. Mild ectasia of the distal LEFT ureter similar to the prior study. Aorta: Mild atherosclerosis abdominal aorta with no aneurysm. No free fluid, intraperitoneal air or significant lymphadenopathy. GI tract: No obstruction. No colitis. Abdominal wall: Negative. No hernia. Pelvis: Marked bladder wall thickening is diffuse. Prostate is enlarged. No stones in the urinary bladder. Osseous structures: Increase in the lumbar lordosis. Diffuse sarcopenia. CT/CT kidney stone [id number] IMPRESSION: 1. Bilateral perinephric stranding. 2. More advanced fat stranding involving the RIGHT kidney, central renal pelvi s and the RIGHT ureter. Highly suspect pyelonephritis. No obstructing calcifica tions are identified. Mild left-sided pyelonephritis without a ureteral obstruc tion. Ureters are mildly dilated with no obstructing stone. 3. Bilateral nonobstructing central renal calculi. No ureteral calcification. 4. Marked diffuse bladder wall thickening. Most likely outlet obstruction. 5. Cirrhosis with portal venous hypertension.
[2024-11-01 15:00] VITALS: BP 119/64; PULSE 82; O2SAT 92
[2024-11-01] MEDS: ciprofloxacin 400 MG/200 ML PREMIX 200 MG IV (16:41)
[2024-11-01 16:58] LABS: Lactic Sepsis W/Reflex 2.5 mmol/L (0.5-2.2)
--- NOTE | 2024-11-01 17:27 | PC.NURSE ---
SPACE PHYSICIST LEFT MESSAGE FOR [facility] NOTIFYING THEM THAT THE DISCHARGE WAS CANCELLED.
[2024-11-01 17:30] VITALS: BP 126/65; PULSE 84; O2SAT 93
--- NOTE | 2024-11-01 17:36 | P.HP_ITS ---
Providers/Chief Complaint 2 Admitting Physician: Beatriz Doe MD Chief Complaint: groin pain History of Present Illness Neri Arias is a 69 year old male presenting to the ER today with c/o right groin pain that started suddenly this morning. He was in his usual state of health prior. He Has been using depends or pull ups recently. He has neuropathy and charcot's foot therefore restricted movement. H/o kidney stones+. He was found to have elevated lacatate and + UA, ill appearing on exam. Chart shows Ciprofloxacin on OCT, uncertain if he has been taking this. h/o BPH + on Flomax. Review of Systems 2 General: Reports: 10 or more systems reviewed and unremarkable except in HPI and below Const: Denies: fever(s), chills or body aches Eyes: Denies: change in vision, blurry vision or photophobia ENMT: Reports: hoarseness; Denies: throat pain, enlarged tonsils, odynophagia or nasal congestion Card: Denies: chest pain, palpitations, irregular heart rhythm, edema, swelling of feet/ankles, lightheadedness, pre-syncope, dyspnea on exertion or orthopnea Resp: Denies: dyspnea, productive cough, non-productive cough, wheezing, stridor, pain on inspiration, change in phlegm color, hemoptysis or chest congestion GI: Denies: abdominal pain, nausea, vomiting, hematemesis, coffee ground emesis, dysphagia, heartburn, diarrhea, constipation, GI cramping, change in stool character, hematochezia or melena : Denies: flank pain, dysuria, urinary frequency, urinary urgency, urinary hesitancy or hematuria Musc: Denies: neck pain, back pain, extremity pain, joint swelling, joint warmth or deformity Neuro: Denies: headache(s), numbness in extremities, weakness in extremities, sensory changes, difficulty walking, frequent falls, dizziness, vertigo, behavioral changes, Slurred speech present or seizure-like activity Psych: Denies: anxiety, depression, suicidal ideation or homicidal ideation Endo: Denies: polyuria, polydipsia, tired all the time, cold intolerance or hot flashes [place]/Lymph: Denies: easy bruising or easy bleeding Medications/Allergies Home Medications ?Medication ?Instructions ?Recorded ?Confirmed ?Last Taken ?Type acetaminophen 325 mg tablet 325 - 500 mg PO QID PRN Pa in 05/03/23 11/01/24 Unknown History aluminum-mag hydroxide-simethicone 10 ml PO Q6H PRN In digestion 05/03/23 11/01/24 Unknown History 400 mg-400 mg-40 mg/5 mL oral susp (Maalox Maximum Strength) bisacodyl 5 mg tablet 5 mg PO DAILY PRN Constipati on 05/03/23 11/01/24 Unknown History hydrocodone 5 mg-acetaminophen 325 1 tab PO Q4H PRN Pa in 05/03/23 11/01/24 11/01/24 History mg tablet nitroglycerin 0.4 mg sublingual 0.4 mg sublingual Q5M PRN Chest 05/03/23 11/01/24 Unknown History tablet Pain tamsulosin 0.4 mg capsule 0.4 mg PO BEDTIME 05/03/23 0 11/01/24 10/31/24 History amlodipine 5 mg tablet 5 mg PO DAILY 09/07/2311/0111/01/24 History risperidone 0.5 mg tablet 0.5 mg PO BID #60 tabs 07/0311/01/24 10/31/24 Rx (Risperdal) ropinirole 4 mg tablet 4 mg PO .HS #30 tabs 4 11/01/24 10/31/24 Rx ondansetron HCl 4 mg tablet 4 mg PO Q8H PRN Nausea 01/2011/01/24 Unknown History trazodone 50 mg tablet 50 mg PO BEDTIME #30 tabs 11/01/24 10/31/24 Rx allopurinol 100 mg tablet 100 mg PO DAILY 11/01/2402/2011/01/24 History ciprofloxacin HCl 500 mg tablet 500 mg PO BID #20 tabs 11/01/24 Unknown Rx docusate sodium 100 mg capsule 100 mg PO DAILY 5 11/01/24 10/31/24 History gabapentin 400 mg capsule 400 mg PO TID 11/01/2411/0111/01/24 History sertraline 100 mg tablet (Zoloft) 100 mg PO DAILY 02/2011/01/24 11/01/24 History Allergies Allergy/AdvReac Type Severity Reaction Status Date / Time Penicillins Allergy Unknown Verified 10/03/24 10:31 PFSH Acute 2 PFSH: Medical History Major depressive disorder, recurrent, severe with psychotic symptoms Psychiatric care Vitals/I&O/Wt Last Vital Signs Temp 98 F 11/01/24 10:44 Pulse 82 11/01/24 15:00 Resp 16 11/01/24 10:44 BP 119/64 11/01/24 15:00 Pulse Ox 92 11/01/24 15:00 O2 Del Method Room Air 11/01/24 15:00 Weight last 48 hrs Weight 90.718 kg Physical Exam 2 Narrative: General: ill appearing, AO x3 HEENT: PERRLA, pupils bilaterally equal and reactive, pallors not present Chest: Normal vesicular breath sounds, no added sounds, equal good air entry bilaterally CVS: S1-S2 regular, no murmurs, no tachycardia, no gallops, no rubs Abdomen: Soft, nontender, no organomegaly, bowel sounds present Neuro: No focal deficits, no facial deformity, AO x3, power 5/5 in all limbs Data 11/01/24 11:04 11/01/24 11:04 Micro: Microbiology 11/01/24 16:29 Blood Culture - Preliminary Blood SPECIMEN COLLECTED 11/01/24 16:12 Blood Culture - Preliminary Blood SPECIMEN COLLECTED Other data: Radiology Impressions Abdomen/Pelvis CT 11/01/24 13:20 IMPRESSION: 1. Bilateral perinephric stranding. 2. More advanced fat stranding involving the RIGHT kidney, central renal pelvis and the RIGHT ureter. Highly suspect pyelonephritis. No obstructing calcifications are identified. Mild left-sided pyelonephritis without a ureteral obstruction. Ureters are mildly dilated with no obstructing stone. 3. Bilateral nonobstructing central renal calculi. No ureteral calcification. 4. Marked diffuse bladder wall thickening. Most likely outlet obstruction. 5. Cirrhosis with portal venous hypertension. Laboratory Results WBC 9.55 10^3/uL (3.29-11.43) 11/01/24 11:04 RBC 5.15 10^6/uL (3.85-5.65) 11/01/24 11:04 Hgb 15.40 g/dL (11.27-16.99) 11/01/24 11:04 Hct 46.1 % (37-53) 11/01/24 11:04 MCV 89.5 fl (82-101) 11/01/24 11:04 MCH 29.9 pg (27-33) 11/01/24 11:04 MCHC 33.4 g/dL (30-55) 11/01/24 11:04 RDW 15.4 % (12.1-15.1) H 11/01/24 11:04 Plt Count 159 10^3/cmm (157-399) 11/01/24 11:04 MPV 11.1 fL (7.4-10.4) H 11/01/24 11:04 Neut % (Auto) 84.6 % 11/01/24 11:04 Lymph % (Auto) 6.1 % 11/01/24 11:04 [place] % (Auto) 8.2 % 11/01/24 11:04 Eos % (Auto) 0.1 % 11/01/24 11:04 Baso % (Auto) 0.4 % 11/01/24 11:04 Neut # (Auto) 8.08 10^3/uL (1.8-7.7) H 11/01/24 11:04 Lymph # (Auto) 0.6 10^3/uL (0.8-4.8) L 11/01/24 11:04 [place] # (Auto) 0.8 10^3/uL (0.2-0.9) 11/01/24 11:04 Eos # (Auto) 0.0 10^3/uL (0.0-0.8) 11/01/24 11:04 Baso # (Auto) 0.0 10^3/uL (0.0-0.1) 11/01/24 11:04 Nucleated RBC % (auto) 0 % 11/01/24 11:04 Nucleated RBCs # 0.0 /100WBC 11/01/24 11:04 Sodium 139 mmol/L (136-145) 11/01/24 11:04 Potassium 3.8 mmol/L (3.5-5.1) 11/01/24 11:04 Chloride 102 mmol/L (98-107) 11/01/24 11:04 Carbon Dioxide 24 mmol/L (22-29) 11/01/24 11:04 Anion Gap 16.8 (5-19) 11/01/24 11:04 BUN 19 mg/dL (8-23) 11/01/24 11:04 Creatinine 0.8 mg/dL (0.7-1.2) 11/01/24 11:04 GFR Calculation 95.6 mL/min (90-130) 11/01/24 11:04 Glucose 111 mg/dL (65-115) 11/01/24 11:04 Calculated Osmolality 291 mOsm/kg (285-295) 11/01/24 11:04 Lactic Acid 2.5 mmol/L (0.5-2.2) H 11/01/24 16:12 Lactic Acid (Sepsis) 1.9 mmol/L (0.5-2.2) 11/01/24 18:46 Calcium 9.0 mg/dL (8.5-10.5) 11/01/24 11:04 Total Bilirubin 0.8 mg/dL (0.15-1.2) 11/01/24 11:04 AST 27 U/L (0-40) 11/01/24 11:04 ALT 23 U/L (0-41) 11/01/24 11:04 Alkaline Phosphatase 110 U/L (40-130) 11/01/24 11:04 Total Protein 8.7 g/dL (6.6-8.7) 11/01/24 11:04 Albumin 3.6 g/dL (3.5-5.2) 11/01/24 11:04 Globulin 5.1 g/dL (1.3-4.6) H 11/01/24 11:04 Urine Color Yellow (Yellow) 11/01/24 12:16 Urine Appearance Turbid (CLEAR) A 11/01/24 12:16 Urine pH 8.5 (5-7) A 11/01/24 12:16 Ur Specific [place] 1.013 (1.005-1.030) 11/01/24 12:16 Urine Protein 2+ (Negative) A 11/01/24 12:16 Urine Glucose (UA) Negative (Normal) 11/01/24 12:16 Urine Ketones Negative (Negative) 11/01/24 12:16 Urine Blood 3+ (Negative) A 11/01/24 12:16 Urine Nitrate Negative (Negative) 11/01/24 12:16 Urine Bilirubin Negative (Negative) 11/01/24 12:16 Urine Urobilinogen 1.0 mg/dL (Negative) 11/01/24 12:16 Ur Leukocyte Esterase 3+ (Negative) A 11/01/24 12:16 Urine RBC 80-100 /hpf (0-2) H 11/01/24 12:16 Urine WBC 25-40 /hpf (0-5) H 11/01/24 12:16 Ur Squamous Epith Cells 0-4 /hpf (0-5) H 11/01/24 12:16 Triple Phos Crystals 0-4 /hpf H 11/01/24 12:16 Amorphous Sediment Not Reportable 11/01/24 12:16 Urine Bacteria 2+ /hpf (NONE) H 11/01/24 12:16 Hyaline Casts 0-4 /lpf H 11/01/24 12:16 Urine Mucus 1+ /hpf 11/01/24 12:16 A&P Assessment and plan (1) Pyelonephritis: 69M presenting with groin pain , + UA , clinical picture concern for pyelonephritis no obstructing stones noted Rigth side inflammatory changes together with groin pain and mildly dilated ureters may be indicative of recently passed stone H/o BPH +, check bladder scan for residual urine Patient is typically incontinent, uses pull ups Start ceftriaxone 1 g iv every 24 hrs await urine and blood cx recheck lactate prn morphine for pain, continue home dose of hydrocodone for chronic pain (2) Flank pain: PDMP PDMP Reviewed: Not Reviewed Attestations 2 Medical Necessity Statement*: less than 2 midnight stay currently anticipated Coding Level of Care Code Acute Code for [facility] Diagnoses Pyelonephritis N12 Flank pain R10.9
[2024-11-01 18:04] VITALS: BP 143/98; PULSE 84; O2SAT 93
[2024-11-01] MEDS: risperiDONE 0.25 mg Tablet 0.5 MG PO (18:14)
[2024-11-01 18:22] LABS: Reflex Lactate Order REFLEX LACTIC ORDERD
[2024-11-01 19:17] LABS: Lactic Acid level (Lactate) 1.9 mmol/L (0.5-2.2)
[2024-11-01 19:44] VITALS: BMI 29.2
[2024-11-01] MEDS: enoxaparin 40 mg/0.4 mL Syringe SUBCUT (19:53)
[2024-11-01] MEDS: sodium chloride 0.9% 1,000 ML 999 ML IV (19:54)
[2024-11-01] MEDS: gabapentin 400 mg Capsule PO (19:54)
[2024-11-01] MEDS: tamsulosin 0.4 mg Capsule PO (19:54)
[2024-11-01] MEDS: ropinirole 1 mg Tablet 4 MG PO (19:54)
[2024-11-01] MEDS: trazodone 50 mg Tablet PO (19:54)
[2024-11-01] MEDS: cefTRIAXone 1,000 mg SDV 1000 MG IVP (19:55)
[2024-11-01 20:00] VITALS: BP 116/67; PULSE 88; RESP 15; TEMP 37.2; O2SAT 94
[2024-11-02] VITALS (7 sets, daily range): BP systolic 106–167; BP diastolic 59–87; PULSE 75–93; RESP 15–18; TEMP 36.6–36.9; O2SAT 92–95; BMI 28.6
[2024-11-02 05:43] LABS: Basophils % 0.3 %; Eosinophils % 0.2 %; Hematocrit 43.3 % (37-53); Lymphocytes # 1.6 10^3/uL (0.8-4.8); Mean Corpuscular HGB Conc 32.6 g/dL (30-55); Mean Corpuscular Hemoglobin 29.3 pg (27-33); Mean Platelet Volume 12.1 fL (7.4-10.4); Monocytes # 1.1 10^3/uL (0.2-0.9); Monocytes % 10.4 %; Neutrophils % 73.6 %; Nucleated Red Blood Cells % 0 %; Platelet Count 148 10^3/cmm (157-399); Red Blood Count 4.81 10^6/uL (3.85-5.65); Red Cell Distribution Width 15.9 % (12.1-15.1); White Blood Count 10.46 10^3/uL (3.29-11.43)
[2024-11-02 06:14] LABS: Lactate (Lactic Acid level) 1.2 mmol/L (0.5-2.2)
[2024-11-02 06:25] LABS: Alanine Aminotransferase 22 U/L (0-41); Albumin Level 3.1 g/dL (3.5-5.2); Alkaline Phosphatase 103 U/L (40-130); Anion Gap 13.7 (5-19); Aspartate Amino Transferase 24 U/L (0-40); Blood Urea Nitrogen 18 mg/dL (8-23); Calcium 8.4 mg/dL (8.5-10.5); Carbon Dioxide 25 mmol/L (22-29); Chloride 102 mmol/L (98-107); Creatinine Clr Calc Pharmacy 81.2665; Globulin 4.8 g/dL (1.3-4.6); Glomerular Filtration Rate 83.4 mL/min (90-130); Glucose 107 mg/dL (65-115); Osmolality Calculated 286 mOsm/kg (285-295); Potassium 3.7 mmol/L (3.5-5.1); Sodium 137 mmol/L (136-145); Total Bilirubin 1.3 mg/dL (0.15-1.2); Total Protein 7.9 g/dL (6.6-8.7)
[2024-11-02] MEDS: risperiDONE 0.25 mg Tablet 0.5 MG PO ×2 (09:33→18:24)
[2024-11-02] MEDS: amlodipine 5 mg Tablet PO (09:33)
[2024-11-02] MEDS: pantoprazole DR 40 mg Tablet PO (09:33)
[2024-11-02] MEDS: sertraline 100 mg Tablet PO (09:33)
[2024-11-02] MEDS: allopurinol 100 mg Tablet PO (09:33)
[2024-11-02] MEDS: gabapentin 400 mg Capsule PO ×3 (09:33→20:24)
[2024-11-02] MEDS: HYDROcodone-acetaminophen 5-325 mg Tablet 1 TAB PO ×3 (09:37→22:23)
--- NOTE | 2024-11-02 10:17 | PC.CHAP ---
Pastoral Care Encounter/Spiritual Assessment Type of Contact [] Declined shell plater visit [] Patient/Family/Request visit [] Outpatient visit [] Follow-up visit [] Physician referral [] Code/Alert [x] Routine visit [] Staff referral [] Actively dying [] Patient sleeping [] Family support [] [] Out of room [] Palliative care [] [] Receiving care in room [] Pre-surgical visit [] Trauma [] Long length of stay [] ICU visit [] Other: Relational/Emotional Strength [x] Patient feels connected with others/family/visitors/staff [] Distress [] Loneliness/isolation [] Abandonment Spirituality of Patient [x] Person of Edith [] Attends Methodist of their Edith [x] Believes in Prayer [] Reads Bible or Christian materials [] There are Spiritual issues to be addressed [employer] Interventions [x] Prayer [x] Active listening [] Non-anxious presence [x] Spiritual/emotional support [] Crisis/trauma care [] Spiritual counseling [] Bereavement support [] Provided bereavement packet [] Provided Bible/devotional materials [] Provided toy/stuffed animal, coloring book to patient or family member [] Provided Communion [] Anointing/[place] [] Salvation [x] Completed spiritual assessment [] Other: Impact on Illness or Injury [] Angry [] Fearful [] Anxious [] Often cries [] Exhaustion [] Unable to work [] Unable to attend synagogue [] Unable to walk/stand [] Unable to read [] Unable to drive [] Unable to eat/drink [] Unable to sleep [] Unable to be with family [] Patient intubated [] Other: Summary Time spent with patient 5 min
[2024-11-02] MEDS: phenazopyridine 100 mg Tablet PO ×2 (14:10→18:24)
--- NOTE | 2024-11-02 16:26 | P.PN_ITS ---
Subjective 2 Subjective: Tmax 99 Fahrenheit overnight. Complaining of pain over the suprapubic region radiating down into the scrotum and penis. Urine culture showing gram-negative rods. Medications: Reviewed: Yes Vitals/I&O/Wt Last Vital Signs Temp 98.2 F 11/02/24 15:28 Pulse 84 11/02/24 15:28 Resp 17 11/02/24 15:28 BP 167/87 11/02/24 15:28 Pulse Ox 92 11/02/24 15:28 O2 Del Method Room Air 11/02/24 15:28 11/02/24 11/02/24 11/02/24 06:59 14:59 22:59 Intake Total 1000 / 1200 290 / 290 Balance 1000 / 1200 290 / 290 Weight last 48 hrs Weight 85.474 kg Weight 87.271 kg Weight 90.718 kg Physical Exam 2 Narrative: General: ill appearing, AO x3 HEENT: PERRLA, pupils bilaterally equal and reactive, pallors not present Chest: Normal vesicular breath sounds, no added sounds, equal good air entry bilaterally CVS: S1-S2 regular, no murmurs, no tachycardia, no gallops, no rubs Abdomen: Soft, nontender, no organomegaly, bowel sounds present Neuro: No focal deficits, no facial deformity, AO x3, power 5/5 in all limbs Data 11/02/24 05:10 11/02/24 05:10 Micro: Microbiology 11/01/24 12:16 Urine Culture - Preliminary Urine,Clean Catch Gram Negative Rods 11/01/24 16:29 Blood Culture - Preliminary Blood SPECIMEN COLLECTED 11/01/24 16:12 Blood Culture - Preliminary Blood SPECIMEN COLLECTED A&P Assessment and plan (1) Pyelonephritis: 69M presenting with groin pain , + UA , clinical picture concern for pyelonephritis no obstructing stones noted Rigth side inflammatory changes together with groin pain and mildly dilated ureters may be indicative of recently passed stone H/o BPH +, check bladder scan for residual urine Patient is typically incontinent, uses pull ups Start ceftriaxone 1 g iv every 24 hrs await urine and blood cx recheck lactate prn morphine for pain, continue home dose of hydrocodone for chronic pain November 02, 2024 Bladder scan performed today showing 350 cc of residual urine. Samaniego catheter recommended. Gram-negative rods noted on urine culture. Awaiting further identification and sensitivity testing. For now continue with ceftriaxone 1 g every 24 hours until results of sensitivity available. Hemodynamics are stable. Lactate improved at 1.9. Add Pyridium for dysuria. (2) Flank pain: PDMP PDMP Reviewed: Not Reviewed Attestations 2 Medical Necessity Statement*: Changed to inpatient admission. Needs IV antibiotics, awaiting identification and sensitivity of gram-negative rods on culture, urinary retention needing Samaniego catheter Coding Level of Care Code Acute Code for [facility] Fwd High MDM includes number and complexity of problems actively addressed during encounter, amount and/or complexity of data reviewed/ordered and described risk of complication, morbidity or mortality of management as documented Diagnoses Pyelonephritis N12 Flank pain R10.9
[2024-11-02] MEDS: cefTRIAXone 1,000 mg SDV 1000 MG IVP (18:24)
[2024-11-02] MEDS: enoxaparin 40 mg/0.4 mL Syringe SUBCUT (18:24)
--- NOTE | 2024-11-02 19:39 | PC.NURSE ---
Unable to obtain a landers due to not being able to advance passed the prostate. Attempted with a 12 [address] coude and a [address] dey. May have to transfer for urology.
[2024-11-02] MEDS: tamsulosin 0.4 mg Capsule PO (20:24)
[2024-11-02] MEDS: ropinirole 1 mg Tablet 4 MG PO (20:24)
[2024-11-02] MEDS: trazodone 50 mg Tablet PO (22:23)
[2024-11-03] VITALS (9 sets, daily range): BP systolic 119–132; BP diastolic 66–87; PULSE 69–83; RESP 14–18; TEMP 36.4–36.8; O2SAT 92–96; BMI 28.6
[2024-11-03] MEDS: amlodipine 5 mg Tablet PO (09:01)
[2024-11-03] MEDS: gabapentin 400 mg Capsule PO ×3 (09:01→20:35)
[2024-11-03] MEDS: pantoprazole DR 40 mg Tablet PO (09:01)
[2024-11-03] MEDS: phenazopyridine 100 mg Tablet PO ×3 (09:02→18:36)
[2024-11-03] MEDS: risperiDONE 0.25 mg Tablet 0.5 MG PO ×2 (09:02→18:36)
[2024-11-03] MEDS: allopurinol 100 mg Tablet PO (09:02)
[2024-11-03] MEDS: HYDROcodone-acetaminophen 5-325 mg Tablet 1 TAB PO ×3 (09:02→18:41)
[2024-11-03] MEDS: sertraline 100 mg Tablet PO (09:02)
--- NOTE | 2024-11-03 12:38 | XRR_ITS ---
PROCEDURE INFORMATION: Exam: XR Chest Exam date and time: 11/03/2024 1:48 PM Age: 69 years old Clinical indication: Cough and wheezing; Additional info: Cough and expiratory wheezing TECHNIQUE: Imaging protocol: Radiologic exam of the chest. Views: 1 view. COMPARISON: CT kidney stone [id number] 11/01/2024 2:13 PM FINDINGS: Lungs: Unremarkable. No consolidation or mass. Pleural spaces: Unremarkable. No pleural effusion. No pneumothorax. Heart/Mediastinum: Unremarkable. No cardiomegaly. Bones/joints: Unremarkable. XR/XR chest 1V portable [id number] IMPRESSION: No acute findings.
[2024-11-03] MEDS: albuterol 2.5 mg/3 mL Neb INHALATION ×3 (13:48→20:50)
[2024-11-03] MEDS: ondansetron 2 mg/ML SDV 2 mL 4 MG IVP (14:29)
[2024-11-03 14:54] LABS: Adenovirus Not Detected (NOT DETECT); Chlamydia Pneumoniae Not Detected (NOT DETECT); Coronavirus 229E,HKU1,NL63,OC4 Not Detected (NOT DETECT); Human Metapneumovirus Not Detected (NOT DETECT); Human Rhinovirus/Enterovirus Not Detected (NOT DETECT); Influenza A Not Detected (NOT DETECT); Influenza A H1 Not Detected (NOT DETECT); Influenza A H1-2009 Not Detected (NOT DETECT); Influenza A H3 Not Detected (NOT DETECT); Influenza B Not Detected (NOT DETECT); Mycoplasma Pneumoniae Not Detected (NOT DETECT); Parainfluenza Virus Type 1 Not Detected (NOT DETECT); Parainfluenza Virus Type 2 Not Detected (NOT DETECT); Parainfluenza Virus Type 3 Not Detected (NOT DETECT); Parainfluenza Virus Type 4 Not Detected (NOT DETECT); Respiratory Syncytial Virus A Not Detected (NOT DETECT); SARS-COV-2 Not Detected (NOT DETECT)
--- NOTE | 2024-11-03 15:18 | PM.PN ---
Subjective Subjective: Patient states that his dysuria is slightly better today after addition of Pyridium. However he feels congested in his chest today. Medications: Reviewed: Yes Vitals/I&O/Wt Last Vital Signs Temp 98.0 F 11/03/24 12:00 Pulse 82 11/03/24 13:53 Resp 18 11/03/24 13:53 BP 122/87 11/03/24 12:00 Pulse Ox 96 11/03/24 13:53 O2 Del Method Room Air 11/03/24 13:53 11/03/24 11/03/24 11/03/24 06:59 14:59 22:59 Intake Total 480 / 480 Output Total 600 / 600 Balance -600 / -310 480 / 480 Weight last 48 hrs Weight 85.389 kg Weight 85.474 kg Weight 87.271 kg Physical Exam Narrative: General: ill appearing, AO x3 HEENT: PERRLA, pupils bilaterally equal and reactive, pallors not present Chest: Normal vesicular breath sounds, no added sounds, equal good air entry bilaterally CVS: S1-S2 regular, no murmurs, no tachycardia, no gallops, no rubs Abdomen: Soft, nontender, no organomegaly, bowel sounds present Neuro: No focal deficits, no facial deformity, AO x3, power 5/5 in all limbs Data 11/02/24 05:10 11/02/24 05:10 Micro: Microbiology 11/01/24 12:16 Urine Culture - Final Urine,Clean Catch Proteus vulgaris Urine Culture Final 11/03/24-1212 Organism 1 Proteus vulgaris [place] Count 50,000 - 60,000 CFU/ml DAY 2 P vulgaris M.I.C. RX --------- ------ * Amikacin <=16 S * Amoxicillin/Clavulanate >16/8 R * Ampicillin/Sulbactam 16/8 I * Aztreonam <=4 S * Cefepime <=8 S * Ceftriaxone <=1 S * Ciprofloxacin >2 R * Gentamicin <=2 S * Imipenem 2 I * Levofloxacin <=2 S * Trimethoprim/Sulfamethoxazole <=2/38 S * Piperacillin/Tazobactam <=16 S 11/01/24 16:29 Blood Culture - Preliminary Blood NEGATIVE TO DATE 11/01/24 16:12 Blood Culture - Preliminary Blood NEGATIVE TO DATE A&P Assessment and plan (1) Pyelonephritis: 69M presenting with groin pain , + UA , clinical picture concern for pyelonephritis no obstructing stones noted Rigth side inflammatory changes together with groin pain and mildly dilated ureters may be indicative of recently passed stone H/o BPH +, check bladder scan for residual urine Patient is typically incontinent, uses pull ups Start ceftriaxone 1 g iv every 24 hrs await urine and blood cx recheck lactate prn morphine for pain, continue home dose of hydrocodone for chronic pain November 02, 2024 Bladder scan performed today showing 350 cc of residual urine. Samaniego catheter recommended. Gram-negative rods noted on urine culture. Awaiting further identification and sensitivity testing. For now continue with ceftriaxone 1 g every 24 hours until results of sensitivity available. Hemodynamics are stable. Lactate improved at 1.9. Add Pyridium for dysuria. November 03, 2024 Samaniego catheter was attempted to be placed yesterday, however this was unable to be placed in spite of multiple attempts including use of a coud? catheter. Patient is making wet diapers, today bladder scan revealed 125 cc of urine. I suspect that patient may have some degree of underlying neurogenic bladder with incomplete emptying versus bladder outlet obstruction from an enlarged prostate. At this time he states that his dysuria is better with addition of Pyridium. Will hold off on any further attempts at Samaniego catheterization to minimize risk of injury. Will keep doing bladder scans, should patient have significant retention, he would likely need to be transferred to another center where Samaniego catheter can be placed by urology. At this time since he is not complaining of any discomfort and there is about 100 cc of urine, deferred Samaniego catheterization for now. Increase Flomax to 0.4 mg twice daily urine culture has resulted with growth of Proteus vulgaris which is sensitive to ceftriaxone. We will continue the same. Patient is afebrile and hemodynamically stable. Likely will transition to oral levofloxacin at discharge based on sensitivity testing. Patient is complaining of chest congestion today. Will check chest x-ray and respiratory viral panel. Mild expiratory wheezing noted on auscultation, added albuterol inhalation. Charge nurse attempted to reach out to [facility] to discuss discharge planning, however there was no answer. (2) Flank pain: PDMP PDMP Reviewed: Not Reviewed Attestations Medical Necessity Statement*: Continue IV ceftriaxone for UTI. Check respiratory panel and chest x-ray, add albuterol Coding Level of Care Code Acute Code for [facility] Diagnoses Pyelonephritis N12 Flank pain R10.9
[2024-11-03 15:27] LABS: Respiratory Syncytial Virus B Detected (NOT DETECT)
[2024-11-03] MEDS: cefTRIAXone 1,000 mg SDV 1000 MG IVP (18:36)
[2024-11-03] MEDS: tamsulosin 0.4 mg Capsule PO (18:36)
[2024-11-03] MEDS: enoxaparin 40 mg/0.4 mL Syringe SUBCUT (18:36)
[2024-11-03] MEDS: ropinirole 1 mg Tablet 4 MG PO (20:36)
[2024-11-03] MEDS: trazodone 50 mg Tablet PO (20:36)
[2024-11-04] VITALS (10 sets, daily range): BP systolic 117–154; BP diastolic 66–83; PULSE 68–85; RESP 14–18; TEMP 36.4–37; O2SAT 93–95
[2024-11-04 04:19] LABS: Basophils % 0.5 %; Eosinophils % 0.3 %; Hematocrit 40.7 % (37-53); Lymphocytes # 1.6 10^3/uL (0.8-4.8); Lymphocytes % 24.8 %; Mean Corpuscular HGB Conc 31.4 g/dL (30-55); Mean Corpuscular Volume 92.1 fl (82-101); Mean Platelet Volume 11.9 fL (7.4-10.4); Monocytes # 0.8 10^3/uL (0.2-0.9); Monocytes % 11.9 %; Neutrophils # 3.86 10^3/uL (1.8-7.7); Neutrophils % 61.4 %; Nucleated Red Blood Cells % 0 %; Platelet Count 128 10^3/cmm (157-399); Red Blood Count 4.42 10^6/uL (3.85-5.65); Red Cell Distribution Width 15.8 % (12.1-15.1); White Blood Count 6.29 10^3/uL (3.29-11.43)
[2024-11-04 04:49] LABS: Alanine Aminotransferase 20 U/L (0-41); Albumin Level 2.9 g/dL (3.5-5.2); Alkaline Phosphatase 109 U/L (40-130); Anion Gap 12.6 (5-19); Aspartate Amino Transferase 23 U/L (0-40); Blood Urea Nitrogen 16 mg/dL (8-23); Calcium 8.4 mg/dL (8.5-10.5); Carbon Dioxide 26 mmol/L (22-29); Chloride 103 mmol/L (98-107); Creatinine Clr Calc Pharmacy 81.2298; Globulin 4.7 g/dL (1.3-4.6); Glomerular Filtration Rate 83.4 mL/min (90-130); Glucose 87 mg/dL (65-115); Osmolality Calculated 287 mOsm/kg (285-295); Potassium 3.6 mmol/L (3.5-5.1); Sodium 138 mmol/L (136-145); Total Bilirubin 0.5 mg/dL (0.15-1.2); Total Protein 7.6 g/dL (6.6-8.7)
[2024-11-04] MEDS: docusate sodium 100 mg Capsule PO (09:06)
[2024-11-04] MEDS: gabapentin 400 mg Capsule PO ×3 (09:06→20:37)
[2024-11-04] MEDS: allopurinol 100 mg Tablet PO (09:06)
[2024-11-04] MEDS: risperiDONE 0.25 mg Tablet 0.5 MG PO ×2 (09:06→17:07)
[2024-11-04] MEDS: phenazopyridine 100 mg Tablet PO ×3 (09:06→17:07)
[2024-11-04] MEDS: amlodipine 5 mg Tablet PO (09:06)
[2024-11-04] MEDS: sertraline 100 mg Tablet PO (09:06)
[2024-11-04] MEDS: pantoprazole DR 40 mg Tablet PO (09:06)
[2024-11-04] MEDS: tamsulosin 0.4 mg Capsule PO ×2 (09:06→17:08)
--- NOTE | 2024-11-04 10:36 | PC.NURSE ---
Post void bladder scan is 200ml.
[2024-11-04] MEDS: HYDROcodone-acetaminophen 5-325 mg Tablet 1 TAB PO ×2 (12:09→17:14)
[2024-11-04] MEDS: albuterol 2.5 mg/3 mL Neb INHALATION (14:12)
--- NOTE | 2024-11-04 16:51 | P.PN_ITS ---
Subjective 2 Subjective: States he feels poorly. Has been having bouts of coughing. Expiratory wheezing on auscultation. Medications: Reviewed: Yes Vitals/I&O/Wt Last Vital Signs Temp 97.8 F 11/04/24 12:00 Pulse 85 11/04/24 14:25 Resp 18 11/04/24 14:14 BP 139/83 11/04/24 12:00 Pulse Ox 94 11/04/24 14:14 O2 Del Method Room Air 11/04/24 14:14 11/04/24 11/04/24 11/04/24 07:59 14:59 22:59 Intake Total 240 / 840 240 / 240 Balance 240 / 840 240 / 240 Weight last 48 hrs Weight 87.589 kg Weight 85.389 kg Physical Exam 2 Narrative: General: ill appearing, AO x3 HEENT: PERRLA, pupils bilaterally equal and reactive, pallors not present Chest: Normal vesicular breath sounds, no added sounds, equal good air entry bilaterally CVS: S1-S2 regular, no murmurs, no tachycardia, no gallops, no rubs Abdomen: Soft, nontender, no organomegaly, bowel sounds present Neuro: No focal deficits, no facial deformity, AO x3, power 5/5 in all limbs Data 11/04/24 03:27 11/04/24 03:27 Micro: Microbiology 11/01/24 12:16 Urine Culture - Final Urine,Clean Catch Proteus vulgaris A&P Assessment and plan (1) Pyelonephritis: 69M presenting with groin pain , + UA , clinical picture concern for pyelonephritis no obstructing stones noted Rigth side inflammatory changes together with groin pain and mildly dilated ureters may be indicative of recently passed stone H/o BPH +, check bladder scan for residual urine Patient is typically incontinent, uses pull ups Start ceftriaxone 1 g iv every 24 hrs await urine and blood cx recheck lactate prn morphine for pain, continue home dose of hydrocodone for chronic pain November 02, 2024 Bladder scan performed today showing 350 cc of residual urine. Samaniego catheter recommended. Gram-negative rods noted on urine culture. Awaiting further identification and sensitivity testing. For now continue with ceftriaxone 1 g every 24 hours until results of sensitivity available. Hemodynamics are stable. Lactate improved at 1.9. Add Pyridium for dysuria. November 03, 2024 Samaniego catheter was attempted to be placed yesterday, however this was unable to be placed in spite of multiple attempts including use of a coud? catheter. Patient is making wet diapers, today bladder scan revealed 125 cc of urine. I suspect that patient may have some degree of underlying neurogenic bladder with incomplete emptying versus bladder outlet obstruction from an enlarged prostate. At this time he states that his dysuria is better with addition of Pyridium. Will hold off on any further attempts at Samaniego catheterization to minimize risk of injury. Will keep doing bladder scans, should patient have significant retention, he would likely need to be transferred to another center where Samaniego catheter can be placed by urology. At this time since he is not complaining of any discomfort and there is about 100 cc of urine, deferred Samaniego catheterization for now. Increase Flomax to 0.4 mg twice daily urine culture has resulted with growth of Proteus vulgaris which is sensitive to ceftriaxone. We will continue the same. Patient is afebrile and hemodynamically stable. Likely will transition to oral levofloxacin at discharge based on sensitivity testing. Patient is complaining of chest congestion today. Will check chest x- ray and respiratory viral panel. Mild expiratory wheezing noted on auscultation, added albuterol inhalation. Charge nurse attempted to reach out to [facility] to discuss discharge planning, however there was no answer. November 04, 2024 Bladder spasms are better today. Less dysuria. Bladder scan with between 120 to 250 cc urine. Suspect that patient has underlying neurogenic bladder. Will need urology follow-up at outpatient. This is likely what predisposed him to getting a UTI. Overall appears to be better from a urinary standpoint, however reports increasing congestion, bouts of cough and wheezing today. He has bilateral wheezing to auscultation in all areas. Likely triggered by RSV for which she tested positive yesterday. Will add scheduled nebulization with DuoNeb and budesonide. Additionally add some cough suppressants. Supportive management for RSV infection currently. (2) Flank pain: PDMP PDMP Reviewed: Not Reviewed Attestations 2 Medical Necessity Statement*: Clinically improving from a urinary standpoint, however in the interim has developed RSV infection with diffuse wheezing and bothersome cough. Management as above. Coding Level of Care Code Acute Code for [facility] Diagnoses Pyelonephritis N12 Flank pain R10.9
[2024-11-04] MEDS: cefTRIAXone 1,000 mg SDV 1000 MG IVP (17:07)
[2024-11-04] MEDS: enoxaparin 40 mg/0.4 mL Syringe SUBCUT (17:07)
[2024-11-04] MEDS: ropinirole 1 mg Tablet 4 MG PO (20:36)
[2024-11-04] MEDS: guaiFENesin-dextromethorphan UDC 10 mL 5 ML PO (20:36)
[2024-11-04] MEDS: trazodone 50 mg Tablet PO (20:37)
[2024-11-04] MEDS: budesonide 0.5 mg/2 mL Neb INHALATION (20:57)
[2024-11-04] MEDS: ipratropium-albuterol 3 mL Neb INHALATION (20:57)
[2024-11-05] VITALS (7 sets, daily range): BP systolic 128–146; BP diastolic 58–74; PULSE 63–85; RESP 17–19; TEMP 36.3–36.7; O2SAT 91–96
[2024-11-05] MEDS: ipratropium-albuterol 3 mL Neb INHALATION ×3 (01:52→14:22)
[2024-11-05 03:09] LABS: Basophils % 0.7 %; Eosinophils % 0.3 %; Hematocrit 39.1 % (37-53); Lymphocytes # 1.9 10^3/uL (0.8-4.8); Lymphocytes % 32.2 %; Mean Corpuscular HGB Conc 32.2 g/dL (30-55); Mean Corpuscular Hemoglobin 29.2 pg (27-33); Mean Corpuscular Volume 90.5 fl (82-101); Mean Platelet Volume 11.8 fL (7.4-10.4); Monocytes # 0.7 10^3/uL (0.2-0.9); Monocytes % 10.9 %; Neutrophils # 3.26 10^3/uL (1.8-7.7); Neutrophils % 54.6 %; Nucleated Red Blood Cells % 0 %; Platelet Count 127 10^3/cmm (157-399); Red Blood Count 4.32 10^6/uL (3.85-5.65); Red Cell Distribution Width 15.6 % (12.1-15.1); White Blood Count 5.97 10^3/uL (3.29-11.43)
[2024-11-05 03:42] LABS: Alanine Aminotransferase 20 U/L (0-41); Alkaline Phosphatase 112 U/L (40-130); Anion Gap 12.4 (5-19); Aspartate Amino Transferase 22 U/L (0-40); Blood Urea Nitrogen 16 mg/dL (8-23); Calcium 8.5 mg/dL (8.5-10.5); Carbon Dioxide 27 mmol/L (22-29); Chloride 102 mmol/L (98-107); Creatinine Clr Calc Pharmacy 82.1804; Globulin 4.2 g/dL (1.3-4.6); Glomerular Filtration Rate 83.4 mL/min (90-130); Glucose 107 mg/dL (65-115); Osmolality Calculated 288 mOsm/kg (285-295); Potassium 3.4 mmol/L (3.5-5.1); Sodium 138 mmol/L (136-145); Total Bilirubin 0.4 mg/dL (0.15-1.2); Total Protein 7.2 g/dL (6.6-8.7)
[2024-11-05] MEDS: HYDROcodone-acetaminophen 5-325 mg Tablet 1 TAB PO (06:32)
[2024-11-05] MEDS: budesonide 0.5 mg/2 mL Neb INHALATION (08:22)
[2024-11-05] MEDS: tamsulosin 0.4 mg Capsule PO (10:21)
[2024-11-05] MEDS: gabapentin 400 mg Capsule PO (10:21)
[2024-11-05] MEDS: risperiDONE 0.25 mg Tablet 0.5 MG PO (10:21)
[2024-11-05] MEDS: pantoprazole DR 40 mg Tablet PO (10:21)
[2024-11-05] MEDS: amlodipine 5 mg Tablet PO (10:21)
[2024-11-05] MEDS: allopurinol 100 mg Tablet PO (10:22)
[2024-11-05] MEDS: benzonatate 100 mg Capsule PO (10:22)
[2024-11-05] MEDS: sertraline 100 mg Tablet PO (10:22)
[2024-11-05] MEDS: acetaminophen 325 mg Tablet 650 MG PO (10:22)
[2024-11-05] MEDS: phenazopyridine 100 mg Tablet PO ×2 (10:22→12:03)
--- NOTE | 2024-11-05 12:34 | P.DS_ITS ---
Discharge Providers Date of Admission: 11/02/24 16:25 Date of Discharge: November 05, 2024 Attending Provider at Admission: Beatriz Doe MD Attending Provider at Discharge: Lawanda Palacios MD Diagnoses at Discharge Discharge Diagnosis (1) Pyelonephritis: Status: Acute (2) Flank pain: Status: Resolved Reason for Visit Reason for Visit: groin pain Hospital Course Hospital Course Patient presented to the hospital with groin pain and was diagnosed with pyelo nephritis. No obstructing stones needed. He did have BPH and and a Samaniego catheter was attempted however Samaniego catheterization was unsuccessful. Bladder scans were completed and patient did not have significant urinary retention. Samaniego catheterization deferred. Flomax dose was increased at time of discharge. Patient was referred to urology as an outpatient. During hospitalization he was also positive for RSV and was provided supportive care. Patient will be discharged with levofloxacin for an additional 10 days to complete course. Urology referral placed at discharge. Respiratory villanueva patient doing fairly. He was given Robitussin cough syrup. Physical Exam Narrative: General: ill appearing, AO x3 HEENT: PERRLA, pupils bilaterally equal and reactive, pallors not present Chest: Normal vesicular breath sounds, no added sounds, equal good air entry bilaterally CVS: S1-S2 regular, no murmurs, no tachycardia, no gallops, no rubs Abdomen: Soft, nontender, no organomegaly, bowel sounds present Neuro: No focal deficits, no facial deformity, AO x3, Discharge Data Studies Completed and Pending Completed Studies During Hospitalization Category Date Time Status CT kidney stone [id number] Stat Cat Scan 11/01/24 13:20 Completed XR chest 1V portable [id number] Urgent Exams 11/03/24 12:38 Completed Pending at discharge Category Date Time Status Blood Culture Stat Lab 11/01/24 16:29 Results Radiology Impressions Abdomen/Pelvis CT 11/01/24 13:20 IMPRESSION: 1. Bilateral perinephric stranding. 2. More advanced fat stranding involving the RIGHT kidney, central renal pelvis and the RIGHT ureter. Highly suspect pyelonephritis. No obstructing mark cifications are identified. Mild left-sided pyelonephritis without a ureteral obstruction. Ureters are mildly dilated with no obstructing stone. 3. Bilateral nonobstructing central renal calculi. No ureteral calcification. 4. Marked diffuse bladder wall thickening. Most likely outlet obstruction. 5. Cirrhosis with portal venous hypertension. Chest X-Ray 11/03/24 12:38 IMPRESSION: No acute findings. Laboratory Results WBC 5.97 10^3/uL (3.29-11.43) 11/05/24 02:10 RBC 4.32 10^6/uL (3.85-5.65) 11/05/24 02:10 Hgb 12.60 g/dL (11.27-16.99) 11/05/24 02:10 Hct 39.1 % (37-53) 11/05/24 02:10 MCV 90.5 fl (82-101) 11/05/24 02:10 MCH 29.2 pg (27-33) 11/05/24 02:10 MCHC 32.2 g/dL (30-55) 11/05/24 02:10 RDW 15.6 % (12.1-15.1) H 11/05/24 02:10 Plt Count 127 10^3/cmm (157-399) L 11/05/24 02:10 MPV 11.8 fL (7.4-10.4) H 11/05/24 02:10 Neut % (Auto) 54.6 % 11/05/24 02:10 Lymph % (Auto) 32.2 % 11/05/24 02:10 [place] % (Auto) 10.9 % 11/05/24 02:10 Eos % (Auto) 0.3 % 11/05/24 02:10 Baso % (Auto) 0.7 % 11/05/24 02:10 Neut # (Auto) 3.26 10^3/uL (1.8-7.7) 11/05/24 02:10 Lymph # (Auto) 1.9 10^3/uL (0.8-4.8) 11/05/24 02:10 [place] # (Auto) 0.7 10^3/uL (0.2-0.9) 11/05/24 02:10 Eos # (Auto) 0.0 10^3/uL (0.0-0.8) 11/05/24 02:10 Baso # (Auto) 0.0 10^3/uL (0.0-0.1) 11/05/24 02:10 Nucleated RBC % (auto) 0 % 11/05/24 02:10 Nucleated RBCs # 0.0 /100WBC 11/05/24 02:10 Sodium 138 mmol/L (136-145) 11/05/24 02:10 Potassium 3.4 mmol/L (3.5-5.1) L 11/05/24 02:10 Chloride 102 mmol/L (98-107) 11/05/24 02:10 Carbon Dioxide 27 mmol/L (22-29) 11/05/24 02:10 Anion Gap 12.4 (5-19) 11/05/24 02:10 BUN 16 mg/dL (8-23) 11/05/24 02:10 Creatinine 0.9 mg/dL (0.7-1.2) 11/05/24 02:10 GFR Calculation 83.4 mL/min (90-130) L 11/05/24 02:10 Glucose 107 mg/dL (65-115) 11/05/24 02:10 Calculated Osmolality 288 mOsm/kg (285-295) 11/05/24 02:10 Lactic Acid 2.5 mmol/L (0.5-2.2) H 11/01/24 16:12 Lactic Acid (Sepsis) 1.9 mmol/L (0.5-2.2) 11/01/24 18:46 Lactate 1.2 mmol/L (0.5-2.2) 11/02/24 05:10 Calcium 8.5 mg/dL (8.5-10.5) 11/05/24 02:10 Total Bilirubin 0.4 mg/dL (0.15-1.2) 11/05/24 02:10 AST 22 U/L (0-40) 11/05/24 02:10 ALT 20 U/L (0-41) 11/05/24 02:10 Alkaline Phosphatase 112 U/L (40-130) 11/05/24 02:10 Total Protein 7.2 g/dL (6.6-8.7) 11/05/24 02:10 Albumin 3.0 g/dL (3.5-5.2) L 11/05/24 02:10 Globulin 4.2 g/dL (1.3-4.6) 11/05/24 02:10 Urine Color Yellow (Yellow) 11/01/24 12:16 Urine Appearance Turbid (CLEAR) A 11/01/24 12:16 Urine pH 8.5 (5-7) A 11/01/24 12:16 Ur Specific [place] 1.013 (1.005-1.030) 11/01/24 12:16 Urine Protein 2+ (Negative) A 11/01/24 12:16 Urine Glucose (UA) Negative (Normal) 11/01/24 12:16 Urine Ketones Negative (Negative) 11/01/24 12:16 Urine Blood 3+ (Negative) A 11/01/24 12:16 Urine Nitrate Negative (Negative) 11/01/24 12:16 Urine Bilirubin Negative (Negative) 11/01/24 12:16 Urine Urobilinogen 1.0 mg/dL (Negative) 11/01/24 12:16 Ur Leukocyte Esterase 3+ (Negative) A 11/01/24 12:16 Urine RBC 80-100 /hpf (0-2) H 11/01/24 12:16 Urine WBC 25-40 /hpf (0-5) H 11/01/24 12:16 Ur Squamous Epith Cells 0-4 /hpf (0-5) H 11/01/24 12:16 Triple Phos Crystals 0-4 /hpf H 11/01/24 12:16 Amorphous Sediment Not Reportable 11/01/24 12:16 Urine Bacteria 2+ /hpf (NONE) H 11/01/24 12:16 Hyaline Casts 0-4 /lpf H 11/01/24 12:16 Urine Mucus 1+ /hpf 11/01/24 12:16 Adenovirus (PCR) Not detected (NOT DETECT) 11/03/24 13:00 C. pneumoniae DNA (PCR) Not detected (NOT DETECT) 11/03/24 13:00 Coronavirus 229E (PCR) Not detected (NOT DETECT) 11/03/24 13:00 Human Metapneumovir PCR Not detected (NOT DETECT) 11/03/24 13:00 Influenza A (H1) PCR Not detected (NOT DETECT) 11/03/24 13:00 Influ A (H1/09) PCR Not detected (NOT DETECT) 11/03/24 13:00 Influenza A (H3) PCR Not detected (NOT DETECT) 11/03/24 13:00 Influenza Type A (PCR) Not detected (NOT DETECT) 11/03/24 13:00 Influenza Type B (PCR) Not detected (NOT DETECT) 11/03/24 13:00 M. pneumoniae (PCR) Not detected (NOT DETECT) 11/03/24 13:00 Parainfluenza 1 (PCR) Not detected (NOT DETECT) 11/03/24 13:00 Parainfluenza 2 (PCR) Not detected (NOT DETECT) 11/03/24 13:00 Parainfluenza 3 (PCR) Not detected (NOT DETECT) 11/03/24 13:00 Parainfluenza 4 (PCR) Not detected (NOT DETECT) 11/03/24 13:00 RSV Type A (PCR) Not detected (NOT DETECT) 11/03/24 13:00 RSV Type B (PCR) Detected (NOT DETECT) A 11/03/24 13:00 Entero/Rhino (PCR) Not detected (NOT DETECT) 11/03/24 13:00 SARS-CoV-2 (PCR) Not detected (NOT DETECT) 11/03/24 13:00 Vitals Last Vital Signs Temp 98.0 F 11/05/24 11:18 Pulse 72 11/05/24 11:18 Resp 18 11/05/24 11:18 BP 128/58 11/05/24 11:18 Pulse Ox 91 11/05/24 11:18 O2 Del Method Room Air 11/05/24 11:18 Discharge Plan Discharge Patient Disposition: Xfer SNF Condition: Stable Prescriptions: New pantoprazole 40 mg Tablet,Delayed Release (Dr/Ec) 40 mg PO DAILY Qty: 14 0RF dextromethorphan-guaifenesin 10-100 mg/5 mL Syrup 5 ml PO Q8H PRN (Reason: Cough) Qty: 35 0RF levofloxacin 750 mg tablet 750 mg PO DAILY 10 Days Qty: 10 0RF Continued ropinirole 4 mg tablet 4 mg PO .HS Qty: 30 11RF risperidone [Risperdal] 0.5 mg tablet 0.5 mg PO BID Qty: 60 11RF ondansetron HCl 4 mg tablet 4 mg PO Q8H PRN (Reason: Nausea) trazodone 50 mg tablet 50 mg PO BEDTIME Qty: 30 11RF amlodipine 5 mg tablet 5 mg PO DAILY acetaminophen 325 mg Tablet 325 - 500 mg PO QID PRN (Reason: Pain) hydrocodone-acetaminophen 5-325 mg tablet 1 tab PO Q4H PRN (Reason: Pain) nitroglycerin 0.4 mg Tablet, Sublingual 0.4 mg SUBLINGUAL Q5M PRN (Reason: Chest Pain) Rx Instructions: do not exceed 3 doses per episode alum-mag hydroxide-simeth [Maalox Maximum Strength] 400-400-40 mg/5 mL Suspension 10 ml PO Q6H PRN (Reason: Indigestion) bisacodyl 5 mg Tablet 5 mg PO DAILY PRN (Reason: Constipation) gabapentin 400 mg capsule 400 mg PO TID allopurinol 100 mg tablet 100 mg PO DAILY docusate sodium 100 mg Capsule 100 mg PO DAILY sertraline [Zoloft] 100 mg tablet 100 mg PO DAILY Changed tamsulosin 0.4 mg capsule 0.4 mg PO BID Qty: 30 0RF Discharge Orders: Discharge Order (Routine); Ordered 11/05/24 Ordered By: Lawanda Palacios Referrals: Leif Díaz [Referring] - 4-7 days (urinary retention, suspect neurogenic bladder We have notified your physician's clinic of the need for a follow-up appointment to be scheduled. If you have not heard from them within the next 2 business days, please call them directly. ) Discharge Diet: Usual diet Discharge Activity: Resume usual activity Patient Instructions: Pain Management, Pyelonephritis Activity Restrictions/Additional Instructions: Thank you for choosing [facility] for your healthcare needs today. It is very important that you follow up as instructed or that you return to the Emergency Department should you have concerns or if your condition changes or worsens in any way. Discharge Attestations Time Spent in Discharge Care*: less than 30 min Quality Metrics Clinical Quality Measures [ No reported AMI, CVA or VTE this stay] Coding Level of Care Code Acute Code for g Fwd Diagnoses Pyelonephritis N12 Flank pain R10.9
--- NOTE | 2024-11-05 13:39 | PC.NURSE ---
Report called to Virginia SIBLEY at [facility]. All questions answered. Waiting for medicaid ride for patient. Will continue to monitor and care for patient until transportation arrives to take patient to the facility.
== END 2024-11-05 16:27 | disposition skilled nursing facility (03) | DRG 690 ==
LOC: ER 17:41 → MEDSURG 17:53
PROVIDERS: Admitting Provider Student in an Organized Health Care Education/Training Program; Emergency Provider Family Medicine; Visit Provider Internal Medicine
DX: N10 Acute pyelonephritis (principal); B96.4 Proteus (mirabilis) (morganii) as the cause of diseases classified elsewhere; B97.4 Respiratory syncytial virus as the cause of diseases classified elsewhere; N40.0 Benign prostatic hyperplasia without lower urinary tract symptoms; F32.9 Major depressive disorder, single episode, unspecified; R32 Unspecified urinary incontinence; N31.9 Neuromuscular dysfunction of bladder, unspecified
CPT/HCPCS: 36415; 51798; 71045; 74176; 80053; 81001; 83605; 85025; 87040; 87077; 87086; 87186; 87486; 87581; 87633; 94640; 96365; 96372; 99285; G0378; J0696; J0744; J1650; J2405; J7030; J7613; J7626; J9999

== ENCOUNTER → 2025-02-15 08:23 | Outpatient (BNVA) | payer MEDICARE, SELFPAY | PROVIDERS: Referring Provider Nurse Practitioner Adult Health; Visit Provider Nurse Practitioner Family | DX: L21.8 Other seborrheic dermatitis (principal); L82.1 Other seborrheic keratosis; L91.8 Other hypertrophic disorders of the skin; L73.8 Other specified follicular disorders; Z08 Encounter for follow-up examination after completed treatment for malignant neoplasm; Z85.828 Personal history of other malignant neoplasm of skin; D48.5 Neoplasm of uncertain behavior of skin | CPT/HCPCS: 11102; 99204 ==

== ENCOUNTER 2025-06-05 23:16 | Emergency (ER) | payer MEDICARE, MEDICAID, SELFPAY ==
--- NOTE | 2025-06-05 23:16 | ECG_ITS ---
[facility] Date: 2025-06-05 Pat Name: Neri Arias Department: Room: Gender: Male Set Up Operator Tool: : 1955 Requested By: Sree Tate Order Number: [id number] Reading MD: SEAN LO Measurements Intervals Dawn Rate: 100 P: -67 CO: 193 QRS: -11 QRSD: 109 T: 29 QT: 361 QTc: 466 Interpretive Statements SINUS TACHYCARDIA SEPTAL MYOCARDIAL INFARCTION , OF INDETERMINATE AGE [40+ ms Q WAVE IN V1/V2] No previous ECG available for comparison Electronically Signed On 06-06-2025 16:50:54 CDT by SEAN LO [email or web address]
[2025-06-05 23:17] VITALS: BP 72/48; PULSE 103; RESP 22; TEMP 37.5; O2SAT 92; BMI 32.3
[2025-06-05 23:21] VITALS: BP 100/50; PULSE 96; RESP 18; O2SAT 92
--- NOTE | 2025-06-05 23:21 | XRR_ITS ---
PROCEDURE INFORMATION: Exam: XR Chest Exam date and time: 06/06/2025 12:00 AM Age: 70 years old Clinical indication: Other: Poss sepsis; Additional info: Possible sepsis TECHNIQUE: Imaging protocol: Radiologic exam of the chest. Views: 1 view. COMPARISON: CR XR chest 1V portable [id number] 11/03/2024 1:48 PM FINDINGS: Lungs: Bibasilar atelectasis versus infiltrate. Pleural spaces: Trace right pleural effusion. Heart/Mediastinum: Cardiomegaly. Bones/joints: Unremarkable. XR/XR chest 1V portable [id number] IMPRESSION: 1. Bibasilar atelectasis versus infiltrate. 2. Trace right pleural effusion. 3. Cardiomegaly.
[2025-06-05 23:22] VITALS: BP 77/50; PULSE 95; RESP 16; O2SAT 93
--- NOTE | 2025-06-05 23:25 | XRR_ITS ---
PROCEDURE INFORMATION: Exam: XR Right Ankle Exam date and time: 06/06/2025 1:49 AM Age: 70 years old Clinical indication: Pain; Ankle; Right; Additional info: Chronic ulcer rle, eval for evidence osteo TECHNIQUE: Imaging protocol: Radiologic exam of the right ankle. Views: 1 or 2 views. COMPARISON: No relevant prior studies available. FINDINGS: Bones/joints: Nonstandard positioning limits osseous evaluation. The ankle is inverted. No acute fracture is noted within the limitations of the exam. Joint space narrowing is present. Soft tissues: Bimalleolar soft tissue edema is present. Vasculature: Vascular atherosclerosis is noted. XR/XR ankle RT 2V [id number] IMPRESSION: 1. No acute fracture is noted within the limitations of the exam. 2. Peripheral vascular disease. 3. If high clinical concern for acute osseous abnormality is present, consider CT ankle.
[2025-06-05] MEDS: magnesium sulfate premix 1 GM/100 ML PIGGYBACK IV (23:31)
[2025-06-05] MEDS: methylPREDNISolone sod succ 125 mg/2 mL INJ IVP (23:31)
[2025-06-05] MEDS: cefepime 2,000 mg SDV 2000 MG IVP (23:33)
--- NOTE | 2025-06-05 23:34 | XRR_ITS ---
PROCEDURE INFORMATION: Exam: XR Left Foot Exam date and time: 06/06/2025 1:58 AM Age: 70 years old Clinical indication: Pain; Foot; Left; Additional info: Deep ulcer ventral L midfoot TECHNIQUE: Imaging protocol: Radiologic exam of the left foot. Views: 3 or more views. COMPARISON: No relevant prior studies available. FINDINGS: Bones/joints: Severe joint space narrowing and osseous remodeling of the midfoot favors sequela of Charcot foot. No acute fracture. Hallux valgus is noted. Indeterminate lucency of the base of the 1st metatarsal. Osseous erosion/underlying osteomyelitis is not excluded. Consider further characterization with CT/MRI foot. Soft tissues: Soft tissue ulceration over the plantar aspect of the midfoot. Corresponding diffuse soft tissue edema of the foot. XR/XR foot LT min 3V* [id number] IMPRESSION: 1. Indeterminate lucency of the base of the 1st metatarsal. Osseous erosion/underlying osteomyelitis is not excluded. Consider further characterization with CT/MRI foot. 2. Severe joint space narrowing and osseous remodeling of the midfoot favors sequela of Charcot foot. 3. Diffuse soft tissue edema of the foot with plantar ulceration. Cellulitis is not excluded.
--- NOTE | 2025-06-05 23:36 | W.ED.RECABL ---
HPI - Recheck/Abnormal Lab/Rx General: Chief Complaint: Recheck/Abnormal Lab/Rx Stated Complaint: SOB Time Seen by Provider: 06/05/25 23:17 History of Present Illness: 70-year-old male past medical history significant for nonhealing ulcers to the bilateral feet, asthma, psychiatric diagnoses, presenting to the emergency department with hypotension. Patient reportedly has been feeling generally unwell over the last 2 to 3 days, was started on azithromycin for URI, today was noted to be hypoxic in the low 80s on room air (patient not home oxygen dependent), when EMS arrived he was hypotensive 70s over 40s which transiently improved with a liter of fluid, patient has an active DNR order, he denies any pain related complaints currently, he denies kwaku shortness of breath, reports generalized fatigue and feeling tired. No fevers per long term report Related Data Home Medications ?Medication ?Instructions ?Recorded ?Confirmed acetaminophen 325 mg tablet 325 mg PO Q4H PRN Pain or fever 05/03/23 06/06/25 aluminum-mag hydroxide-simethicone 10 ml PO Q6H PRN Indigestion 05/03/23 06/06/25 400 mg-400 mg-40 mg/5 mL oral susp (Maalox Maximum Strength) bisacodyl 5 mg tablet 5 mg PO DAILY PRN Constipation 05/03/23 06/06/25 hydrocodone 5 mg-acetaminophen 325 1 tab PO Q4H PRN Pain 05/03/23 06/06/25 mg tablet nitroglycerin 0.4 mg sublingual 0.4 mg sublingual Q5M PRN Chest 05/03/23 06/06/25 tablet Pain amlodipine 5 mg tablet 5 mg PO DAILY 09/07/23 06/06/25 ondansetron HCl 4 mg tablet 4 mg PO Q8H PRN Nausea 10/03/24 06/06/25 allopurinol 100 mg tablet 100 mg PO DAILY 11/01/24 06/06/25 docusate sodium 100 mg capsule 100 mg PO DAILY 11/01/24 06/06/25 gabapentin 400 mg capsule 400 mg PO TID 11/01/24 06/06/25 ascorbate calcium (vitamin C) 500 500 mg PO BID 04/04/25 06/06/25 mg tablet diclofenac sodium 1 % topical gel 4 g topical BID PRN Pain 04/04/25 06/06/25 (Voltaren Arthritis Pain) ropinirole 2 mg tablet 2 mg PO .AM 04/04/25 06/06/25 amino acids-protein hydrolysate 15 1 ea PO BID 06/06/25 06/06/25 gram-101 kcal/30 mL oral liquid azithromycin 250 mg tablet See Rx Instructions .Route .COMPLEX 06/06/25 06/06/25 fluticasone propionate 50 1 spray intranasal BID 06/06/25 06/06/25 mcg/actuation nasal spray,suspension magnesium hydroxide 400 mg/5 mL 30 ml PO DAILY PRN Constipation 06/06/25 06/06/25 oral suspension (Milk of Magnesia) methenamine hippurate 1 gram tablet 1 g PO BID 06/06/25 06/06/25 prednisone 20 mg tablet 20 mg PO QAM 06/06/25 06/06/25 sertraline 50 mg tablet 50 mg PO DAILY 06/06/25 06/06/25 Previous Rx's ?Medication ?Instructions ?Recorded ropinirole 4 mg tablet 4 mg PO .HS #30 tabs 07/03/24 dextromethorphan-guaifenesin 10 5 ml PO Q8H PRN Cough #35 mL 11/05/24 mg-100 mg/5 mL oral syrup tamsulosin 0.4 mg capsule 0.4 mg PO BID #30 caps 11/05/24 trazodone 50 mg tablet 100 mg (2 x 50 mg) PO .Q 8 PM #60 12/31/24 tabs Allergies Allergy/AdvReac Type Severity Reaction Status Date / Time Penicillins Allergy Unknown Verified 04/04/25 13:07 [facility] ED PFSH: Medical History Major depressive disorder, recurrent, severe with psychotic symptoms Psychiatric care Social History Smoking and tobacco/nicotine status: current every day tobacco/nicotine user Physical Exam Narrative: EXAM NARRATIVE: Gen: A&Ox4, patient appears lethargic but is awake and easily arousable, he appears toxic HEENT: Normocephalic, atraumatic, no scleral icterus, external ears normal, moist mucous membranes Neck: Supple, full range of motion, no observable masses Lungs: No Respiratory distress, Lungs clear to auscultation bilaterally no rales, rhonchi, there is mild inspiratory wheezing, respiratory rate low 20s CV: Mildly tachycardic at 103, sinus, regular rhythm, no murmur, there is 1+ edema to the right lower extremity and trace edema to the left lower extremity both pitting Abdomen: Soft, nondistended, nontender to palpation, no rebound or guarding, normal active bowel sounds MSK: No joint swelling, FROM all 4 extremities Skin: There is a shallow superficial ulcer to the right ankle lateral malleolar region, no surrounding erythema or purulent drainage, there is a deeper ulcer to the ventral left midfoot, there is no expressible purulent drainage or surrounding erythema Neuro: Alert and oriented, no slurred speech, sensation and strength grossly intact all 4 extremities Psych: Appropriate for situation. Procedures Central Line Placement Left Femoral: Time Out Performed: Yes Patient Placed on Monitor/Pulse Ox: Yes MD Prep: mask, gown and gloves Central Line Prep: Chlorhexidine scrub and sterile drapes applied Local Anesthetic: lidocaine 1% Amount of anesthesia used (mL): 2 Ultrasound Used for Placement: Yes Central Line Lumen Inserted: triple Post Procedure: sutured in place, good blood return, all ports aspirated, flushed, capped and sterile dressing applied Patient Tolerated Procedure: well Complications: none Course Reevaluation(s): Reevaluation #1: Patient reevaluated at this time, still hypotensive although MAP currently at 65 after a total of 3 L of fluid including 1 L administered prehospital by EMS, he is currently saturating well on 4 L nasal cannula, his chest x-ray does not show significant signs of volume overload and he does not have rales on repeat pulmonary auscultation, will continue fluid resuscitation, start low-dose pressors if MAP drops below 65, laboratory evaluation significant for significant lactic acidosis with leukocytosis, acute renal failure, Samaniego unable to be passed by myself and multiple staff members with multiple attempts including both silicone tip and coud? tip catheters and even a 8 American pediatric catheter with inability to pass beyond the prostate, patient has a history of BPH with difficult to catheterize and follows with urologist at [facility] per his report, I reached out to the [facility] transfer center to transfer the patient for diagnosis of septic shock with acute renal failure and BPH with inability to pass a Samaniego for urology, nephrology, and ICU evaluation. They will call me back Time: 00:45 Reevaluation #2: Patient status post left femoral vein central line insertion for persistent hypotension septic shock, patient currently with a MAP around 65 will have Levophed hanging on hold for any deterioration and route transfer Time: 02:01 Reevaluation #3: Patient with repeat BP MAP in the mid 50s 80s over 40s, Levophed started at 8 mcg/min and now MAP is currently in the 70s Time: 02:21 Additional Reevaluation(s): Patient with morning labs at 4 AM showing relative stability of his kidney derangements, no significant improvement despite 3 L of volume resuscitation, now on low-dose norepinephrine 4 mics per minute, received IV hydrocortisone for septic shock, repeat VBG showing reversal of his previous respiratory alkalosis, now with a pCO2 of 50s suggesting respiratory fatigue as well as failure of metabolic buffering, started on BiPAP currently at 14 over 836% FiO2 pulling tidal volumes in the 500s with alert interactive mental status, no need for airway currently will repeat blood gas on BiPAP to ensure improvement, still currently pending bed assignment at [facility]. Consultations: Consultation #1: I spoke with Dr. Escobedo of critical care at [facility], he accepts patient for transfer, recommends hydro cortisone 50 mg prior to transfer Time: 02:02 Vital Signs: Vital signs: Vital Signs Temperature 99.5 F 06/05/25 23:17 Pulse Rate 78 06/06/25 09:45 Respiratory Rate 20 H 06/06/25 09:45 Blood Pressure 114/64 06/06/25 09:45 Pulse Oximetry 98 06/06/25 09:45 Oxygen Delivery Me thod Room Air 06/06/25 06:00 Oxygen Flow Rate 4 06/06/25 00:11 Fraction of Inspir ed Oxygen 36 06/06/25 08:21 MDM - Recheck/Abnormal Lab/Rx Medical Decision Making 70-year-old male history asthma, active DNR provided from the long term signed October 2024, presenting to the emergency department with hypotension, fatigue, mild tachypnea, suspect pulmonary infection with severe sepsis versus hypercapnic respiratory failure and metabolic acidosis, less likely infected foot ulcer, less likely ACS, less likely primary asthma exacerbation, patient received 1 L of IV fluid prior to arrival with transient BP response but was again hypotensive in the ER, will give an additional 1 L which will make a total of 2 L, 30 cc/kg for ideal body weight of 69 kg would be approximately 2.1 L and I am hesitant to give additional fluids rapidly given the patient's lower extremity edema and tenuous respiratory status although will reassess after liter is given to evaluate fluid responsiveness, rule out hypercapnia with blood gas, evaluate chest x-ray, sepsis workup with broad spectrum antibiotics empirically, reassess for disposition but anticipate admission with level of care to be determined pending response to treatment and possible need for pressors and/or BiPAP or intubation. Lab Data Workup showing leukocytosis, acute renal failure with a creatinine of 3.5, mild hyponatremia 130, acidosis with a pH of 7-9 and a measured bicarbonate of 15, lactic acidosis 5 hyperbilirubinemia to 2.3 without other significant LFT elevation 06/06/25 04:40 06/06/25 04:40 Radiology Impressions Chest X-Ray 06/05/25 23:21 IMPRESSION: 1. Bibasilar atelectasis versus infiltrate. 2. Trace right pleural effusion. 3. Cardiomegaly. Ankle X-Ray 06/05/25 23:25 IMPRESSION: 1. No acute fracture is noted within the limitations of the exam. 2. Peripheral vascular disease. 3. If high clinical concern for acute osseous abnormality is present, consider CT ankle. Foot X-Ray 06/05/25 23:34 IMPRESSION: 1. Indeterminate lucency of the base of the 1st metatarsal. Osseous erosion/underlying osteomyelitis is not excluded. Consider further characterization with CT/MRI foot. 2. Severe joint space narrowing and osseous remodeling of the midfoot favors sequela of Charcot foot. 3. Diffuse soft tissue edema of the foot with plantar ulceration. Cellulitis is not excluded. Chest/Abdomen/Pelvis CT 06/06/25 00:37 IMPRESSION: 1. Bilateral dependent atelectasis versus infiltrate. 2. Coronary artery atherosclerotic calcifications. 3. Cardiomegaly. 4. Food in the esophagus may be secondary to reflux, please correlate for esophagitis. 5. Bridging productive degenerative changes throughout the spine. 6. Scattered subcentimeter short axis nonspecific mediastinal lymph nodes. IMPRESSION: 1. Right proximal ureter 10 mm calculus with moderate to severe hydronephrosis and hydroureter with perinephric edema, please correlate for pyelonephritis. Additionally calculi are seen in the right renal pelvis measuring up to 14 mm in her right renal calices which appear nonobstructing. 2. Left kidney nonobstructing caliceal stones. 3. Moderate constipation with moderate to large amount of stool in the rectal vault, please correlate for fecal impaction. 4. Diverticulosis without diverticulitis. 5. Cirrhotic liver given peripheral contour nodularity. 6. Spleen enlarged 13.5 cm. 7. Urinary bladder wall thickening may be due to nondistention, please correlate for cystitis. Laboratory Results WBC 29.12 10^3/uL (3.29-11.43) H 06/06/25 04:40 RBC 3.91 10^6/uL (3.85-5.65) 06/06/25 04:40 Hgb 12.00 g/dL (11.27-16.99) 06/06/25 04:40 Hct 36.9 % (37-53) L 06/06/25 04:40 MCV 94.4 fl (82-101) 06/06/25 04:40 MCH 30.7 pg (27-33) 06/06/25 04:40 MCHC 32.5 g/dL (30-55) 06/06/25 04:40 RDW 15.6 % (12.1-15.1) H 06/06/25 04:40 Plt Count 92 10^3/cmm (157-399) L 06/06/25 04:40 MPV 12.0 fL (7.4-10.4) H 06/06/25 04:40 Neut % (Auto) 90.9 % 06/05/25 23:24 Lymph % (Auto) Not Reportable 06/06/25 04:40 Webb % (Auto) Not Reportable 06/06/25 04:40 Eos % (Auto) 0.0 % 06/05/25 23:24 Baso % (Auto) 0.1 % 06/05/25 23:24 Neut # (Auto) 16.94 10^3/uL (1.8-7.7) H 06/05/25 23:24 Lymph # (Auto) Not Reportable 06/06/25 04:40 Webb # (Auto) Not Reportable 06/06/25 04:40 Eos # (Auto) 0.0 10^3/uL (0.0-0.8) 06/05/25 23:24 Baso # (Auto) 0.0 10^3/uL (0.0-0.1) 06/05/25 23:24 Nucleated RBC % (auto) 0 % 06/05/25 23:24 Total Counted 100 (0-100) 06/06/25 04:40 Atypical Lymphs % 0.0 % (0-5) 06/06/25 04:40 Absolute Neutrophils 27.7 10^3/cmm (1.4-6.5) H 06/06/25 04:40 Segmented Neutrophils 71 % 06/06/25 04:40 Band Neutrophils 24.0 % 06/06/25 04:40 Absolute Lymphocytes 0.3 10^3/cmm (1.2-3.4) L 06/06/25 04:40 Lymphocytes (Manual) 1 % 06/06/25 04:40 Monocytes (Manual) 4.0 % 06/06/25 04:40 Absolute Monocytes 1.2 10^3/cmm (0.1-0.6) H 06/06/25 04:40 Eosinophils (Manual) 0 % 06/06/25 04:40 Absolute Eosinophils 0.0 10^3/cmm (0.0-0.7) 06/06/25 04:40 Basophils (Manual) 0.0 % 06/06/25 04:40 Absolute Basophils 0.0 10^3/cmm (0.0-0.2) 06/06/25 04:40 Nucleated RBCs # 0.0 /100WBC 06/05/25 23:24 Platelet Estimate Decreased (Normal) 06/06/25 04:40 Giant Platelets Trace 06/06/25 04:40 Anisocytosis Trace 06/06/25 04:40 PT 17.80 SECONDS (12.1-14.9) H 06/05/25 23:24 INR 1.37 (0.8-1.2) H 06/05/25 23:24 APTT 31.7 SECONDS (23.9-36.7) 06/05/25 23:24 Specimen Type Arterial 06/06/25 06:06 Sample Site Radial, right 06/06/25 06:06 ABG pH 7.22 (7.35-7.45) L 06/06/25 06:06 ABG pCO2 39.6 mmHg (35-45) 06/06/25 06:06 ABG pO2 86.0 mmHg (80.0-100.0) 06/06/25 06:06 ABG PO2/FiO2 Ratio 238 06/06/25 06:06 ABG HCO3 16.4 mmol/L (22-26) L 06/06/25 06:06 ABG O2 Saturation 96.8 06/06/25 06:06 ABG Base Excess -10.7 mmol/L (-2.0-2.0) L 06/06/25 06:06 Richard Test Pos 06/06/25 06:06 VBG pH 7.10 (7.32-7.42) L* 06/06/25 04:40 VBG pCO2 52.7 mmHg (41-51) H 06/06/25 04:40 VBG pO2 57.7 mmHg (25-40) H 06/06/25 04:40 VBG HCO3 16.5 mmol/L (24-28) L 06/06/25 04:40 VBG Base Excess -13.1 mmol/L (-3.0-3.0) L 06/06/25 04:40 VBG Hematocrit 37.7 % (42-52) L 06/06/25 04:40 A-a O2 Gradient 16.1 mmHg (5-10) H 06/06/25 06:06 Hematocrit 37.7 % (42-52) L 06/06/25 06:06 Hgb O2 Saturation 95.6 % (95-100) 06/06/25 06:06 Carboxyhemoglobin 1.2 %THgb (0.4-20.1) 06/06/25 06:06 Methemoglobin 0.1 % (0.4-1.5) L 06/06/25 06:06 Total Hemoglobin 12.3 g/dL (14-18) L 06/06/25 06:06 Sodium 132.0 mmol/L (131-143) 06/06/25 06:06 Potassium 4.2 mmol/L (3.5-5.0) 06/06/25 06:06 Glucose 171.0 mg/dL (70-115) H 06/06/25 06:06 Ionized Calcium 1.1 mmol/L (1.1-1.4) 06/06/25 06:06 O2 Delivery Device Bipap 06/06/25 06:06 O2 Liters/Min 4.0 % 06/06/25 04:40 FiO2 36.0 % 06/06/25 06:06 Orchid Hand ID Haider 06/06/25 06:06 Sodium 131 mmol/L (136-145) L 06/06/25 04:40 Potassium 4.2 mmol/L (3.5-5.1) 06/06/25 04:40 Chloride 97 mmol/L (98-107) L 06/06/25 04:40 Carbon Dioxide 17 mmol/L (22-29) L 06/06/25 04:40 Anion Gap 21.2 (5-19) H 06/06/25 04:40 BUN 57 mg/dL (8-23) H 06/06/25 04:40 Creatinine 3.2 mg/dL (0.7-1.2) H 06/06/25 04:40 GFR Calculation Not Reportable 06/06/25 04:40 Glucose 151 mg/dL (65-115) H 06/06/25 04:40 Calculated Osmolality 291 mOsm/kg (285-295) 06/06/25 04:40 Lactic Acid 5.1 mmol/L (0.5-2.2) H* 06/06/25 04:40 Lactic Acid (Sepsis) 3.6 mmol/L (0.5-2.2) H 06/06/25 07:38 Calcium 7.6 mg/dL (8.5-10.5) L 06/06/25 04:40 Magnesium 2.0 mg/dL (1.7-2.3) 06/05/25 23:24 Total Bilirubin 2.5 mg/dL (0.15-1.2) H 06/06/25 04:40 AST 86 U/L (0-40) H 06/06/25 04:40 ALT 61 U/L (0-41) H 06/06/25 04:40 Alkaline Phosphatase 129 U/L (40-130) 06/06/25 04:40 Troponin T Baseline 99 ng/L (0-15) H 06/05/25 23:24 Troponin T 120 Minute 91.70 ng/L (0-15) H 06/06/25 01:49 Delta Troponin T -7.30 ABS# (0-10) L 06/06/25 01:49 NT-Pro-B Natriuret Pep 2559 pg/mL (0-125) H 06/05/25 23:24 Total Protein 7.1 g/dL (6.6-8.7) 06/06/25 04:40 Albumin 2.7 g/dL (3.5-5.2) L 06/06/25 04:40 Globulin 4.4 g/dL (1.3-4.6) 06/06/25 04:40 Lipase 23 U/L (13-60) 06/05/25 23:24 Procalcitonin 76.29 ng/mL (0-0.5) H 06/05/25 23:24 All radiology interpretation(s) finalized by discharge ED provider radiology interpretation(s): CT chest abdomen pelvis showing mild atelectasis to the lungs, also showing a proximal right ureteral stone 1 cm with upstream hydronephrosis, decompressed urinary bladder EKG Data EKG 1: I personally reviewed and interpreted this EKG as follows: EKG interpretation date: 06/05/25 EKG interpretation time: 23:20 Computer generated interpretation: Sinus tachycardia at 100 bpm, no STEMI, no ectopy, normal axis, QTc 418 ms Critical Care Time Critical Care Time: Critical Care Time: Yes Total Critical Care Time: 80 Attestation: This case had a high probability of a clinically significant, sudden, or life threatening deterioration of this patient's condition which required my full and direct attention, intervention and personal management. Discharge Plan Discharge Patient Disposition: Xfer Short-Term Hosp Clinical Impression: Septic shock, Infection of kidney, Kidney stone on right side, Acidosis, lactic Acute renal failure Qualifiers: Acute renal failure type: unspecified Qualified Code(s): N17.9 - Acute kidney failure, unspecified Condition: Fair Discharge Orders: Transfer Out of Facility (Order); Ordered 06/06/25 Ordered By: Sree Tate Print Language: Spanish Coding Level of Care Code ED Put In Beat Adjuster for Hair Chinchilla
[2025-06-05 23:37] VITALS: BP 63/46; PULSE 98; RESP 17; O2SAT 94
[2025-06-05 23:37] LABS: Hematocrit 36.2 % (37-53); Hemoglobin 12.00 g/dL (11.27-16.99); Mean Corpuscular HGB Conc 33.1 g/dL (30-55); Mean Corpuscular Hemoglobin 30.1 pg (27-33); Mean Corpuscular Volume 90.7 fl (82-101); Nucleated Red Blood Cells % 0 %; Platelet Count 98 10^3/cmm (157-399); Red Blood Count 3.99 10^6/uL (3.85-5.65); White Blood Count 18.63 10^3/uL (3.29-11.43)
[2025-06-05 23:51] LABS: INR 1.37 (0.8-1.2); Prothrombin Time 17.80 SECONDS (12.1-14.9)
[2025-06-05 23:52] VITALS: BP 68/48; PULSE 96; RESP 16; O2SAT 92
[2025-06-05 23:52] LABS: Partial Thromboplastin Time 31.7 SECONDS (23.9-36.7)
[2025-06-05 23:55] LABS: Base Excess VBG -12.9 mmol/L (-3.0-3.0); Blood Gas LPM 2.0 %; Blood Gas Operator Identificat MONRO; Blood Gas Sample Site Not specified; Blood Gas Sample Type Venous; HCO3 VBG 12.4 mmol/L (24-28); PCO2 VBG 26.0 mmHg (41-51); PO2 VBG 93.0 mmHg (25-40); Venous Blood Gas Hematocrit 28.7 % (42-52); pH VBG 7.29 (7.32-7.42)
[2025-06-05 23:58] LABS: Troponin(5th) Baseline 99 ng/L (0-15)
[2025-06-06] VITALS (47 sets, daily range): BP systolic 69–149; BP diastolic 48–82; PULSE 75–105; RESP 10–27; O2SAT 90–98
[2025-06-06 00:04] LABS: Slide Review Slide Review Perform
[2025-06-06 00:11] LABS: NT Pro B Type Natriuretic Pept 2559 pg/mL (0-125); Procalcitonin 76.29 ng/mL (0-0.5)
[2025-06-06 00:22] LABS: Alanine Aminotransferase 32 U/L (0-41); Albumin Level 2.6 g/dL (3.5-5.2); Alkaline Phosphatase 173 U/L (40-130); Anion Gap 22.9 (5-19); Aspartate Amino Transferase 50 U/L (0-40); Blood Urea Nitrogen 59 mg/dL (8-23); Calcium 7.8 mg/dL (8.5-10.5); Carbon Dioxide 15 mmol/L (22-29); Chloride 96 mmol/L (98-107); Creatinine Clr Calc Pharmacy 21.7846; Globulin 4.1 g/dL (1.3-4.6); Glucose 88 mg/dL (65-115); Lipase 23 U/L (13-60); Magnesium 2.0 mg/dL (1.7-2.3); Osmolality Calculated 286 mOsm/kg (285-295); Potassium 3.9 mmol/L (3.5-5.1); Sodium 130 mmol/L (136-145); Total Protein 6.7 g/dL (6.6-8.7)
[2025-06-06 00:23] LABS: Lactic Sepsis W/Reflex 5.2 mmol/L (0.5-2.2)
[2025-06-06] MEDS: lidocaine 2% Urojet 20 mL TOPICAL (00:30)
--- NOTE | 2025-06-06 00:37 | CTR_ITS ---
PROCEDURE INFORMATION: Exam: CT Chest Without Contrast; Diagnostic Exam date and time: 06/06/2025 12:50 AM Age: 70 years old Clinical indication: Other: Septic shock; Additional info: Septic shock, renal failure, cant pass landers d/t bph TECHNIQUE: Imaging protocol: Diagnostic computed tomography of the chest without contrast. Radiation optimization: All CT scans at this facility use at least one of these dose optimization techniques: automated exposure control; mA and/or kV adjustment per patient size (includes targeted exams where dose is matched to clinical indication); or iterative reconstruction. COMPARISON: CR XR chest 1V portable [id number] 06/06/2025 12:00 AM RADIATION DOSE METRICS: Total DLP (mGy-cm): 1237.21 FINDINGS: Lungs: Bilateral dependent atelectasis versus infiltrate. Pleural spaces: Unremarkable. No pneumothorax. No pleural effusion. Heart: Cardiomegaly. Coronary arteries: Coronary artery atherosclerotic calcifications. Lymph nodes: Scattered subcentimeter short axis nonspecific mediastinal lymph nodes. Vasculature: Unremarkable. No aortic aneurysm. Stomach: Food in the esophagus may be secondary to reflux, please correlate for esophagitis. Bones/joints: Bridging productive degenerative changes throughout the spine. Soft tissues: Unremarkable. PROCEDURE INFORMATION: Exam: CT Abdomen And Pelvis Without Contrast Exam date and time: 06/06/2025 12:50 AM Age: 70 years old Clinical indication: Other: Septic shock; Additional info: Septic shock, renal failure, cant pass landers d/t bph TECHNIQUE: Imaging protocol: Computed tomography of the abdomen and pelvis without contrast. Radiation optimization: All CT scans at this facility use at least one of these dose optimization techniques: automated exposure control; mA and/or kV adjustment per patient size (includes targeted exams where dose is matched to clinical indication); or iterative reconstruction. COMPARISON: CT kidney stone [id number] 11/01/2024 2:13 PM RADIATION DOSE METRICS: Total DLP (mGy-cm): 1237.21 FINDINGS: Liver: Cirrhotic liver given peripheral contour nodularity. Gallbladder and biliary ducts: Normal. No calcified stones. No ductal dilation. Pancreas: Normal. No ductal dilation. Spleen: Spleen enlarged 13.5 cm. Adrenal glands: Normal. No mass. Kidneys and ureters: Right proximal ureter 10 mm calculus with moderate to severe hydronephrosis and hydroureter with perinephric edema, please correlate for pyelonephritis. Additionally calculi are seen in the right renal pelvis measuring up to 14 mm in her right renal calices which appear nonobstructing. Left kidney nonobstructing caliceal stones. Stomach and bowel: Moderate constipation with moderate to large amount of stool in the rectal vault, please correlate for fecal impaction. Diverticulosis without diverticulitis. Appendix: No evidence of appendicitis. Intraperitoneal space: Unremarkable. No free air. No significant fluid collection. Vasculature: Unremarkable. No abdominal aortic aneurysm. Lymph nodes: Unremarkable. No enlarged lymph nodes. Urinary bladder: Urinary bladder wall thickening may be due to nondistention, please correlate for cystitis. Reproductive: Unremarkable as visualized. Bones/joints: Unremarkable. No acute fracture. Soft tissues: Unremarkable. CT/[place] [id number] IMPRESSION: 1. Bilateral dependent atelectasis versus infiltrate. 2. Coronary artery atherosclerotic calcifications. 3. Cardiomegaly. 4. Food in the esophagus may be secondary to reflux, please correlate for esophagitis. 5. Bridging productive degenerative changes throughout the spine. 6. Scattered subcentimeter short axis nonspecific mediastinal lymph nodes. IMPRESSION: 1. Right proximal ureter 10 mm calculus with moderate to severe hydronephrosis and hydroureter with perinephric edema, please correlate for pyelonephritis. Additionally calculi are seen in the right renal pelvis measuring up to 14 mm in her right renal calices which appear nonobstructing. 2. Left kidney nonobstructing caliceal stones. 3. Moderate constipation with moderate to large amount of stool in the rectal vault, please correlate for fecal impaction. 4. Diverticulosis without diverticulitis. 5. Cirrhotic liver given peripheral contour nodularity. 6. Spleen enlarged 13.5 cm. 7. Urinary bladder wall thickening may be due to nondistention, please correlate for cystitis.
[2025-06-06 01:20] LABS: Reflex Lactate Order REFLEX LACTIC ORDERD
--- NOTE | 2025-06-06 01:41 | ECG_ITS ---
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: : 1955 Requested By: Sree Tate Order Number: [id number] Reading MD: SEAN LO Measurements Intervals [place] Rate: 102 P: -87 NM: 155 QRS: -25 QRSD: 108 T: 20 QT: 391 QTc: 511 Interpretive Statements SINUS TACHYCARDIA MODERATE INTRAVENTRICULAR CONDUCTION DELAY [105+ ms QRS DURATION, 80+ ms Q/S IN V1/V2, NO Q AND 60+ ms R IN I/aVL/V5/V6] Compared to ECG 06/05/2025 23:16:14 Intraventricular conduction delay now present Myocardial infarct finding no longer present Electronically Signed On 06-06-2025 16:59:03 CDT by SEAN LO [email or web address]
[2025-06-06] MEDS: norepinephrine 4 MG/250 ML BAG 30 MG IV (01:58)
[2025-06-06 02:15] LABS: Troponin 5 2HR 91.70 ng/L (0-15)
[2025-06-06 02:26] LABS: Troponin 5 2HR Delta -7.30 ABS# (0-10)
[2025-06-06 02:27] LABS: Lactic Acid level (Lactate) 5.0 mmol/L (0.5-2.2)
[2025-06-06] MEDS: hydrocortisone 100 mg/2 mL SDV 50 MG IVP (02:34)
[2025-06-06 04:45] LABS: Base Excess VBG -13.1 mmol/L (-3.0-3.0); Blood Gas LPM 4.0 %; Blood Gas Operator Identificat MONRO; Blood Gas Sample Site Not specified; Blood Gas Sample Type Venous; HCO3 VBG 16.5 mmol/L (24-28); PCO2 VBG 52.7 mmHg (41-51); PO2 VBG 57.7 mmHg (25-40); Venous Blood Gas Hematocrit 37.7 % (42-52)
[2025-06-06 04:46] LABS: Hematocrit 36.9 % (37-53); Hemoglobin 12.00 g/dL (11.27-16.99); Mean Corpuscular HGB Conc 32.5 g/dL (30-55); Mean Corpuscular Hemoglobin 30.7 pg (27-33); Mean Corpuscular Volume 94.4 fl (82-101); Platelet Count 92 10^3/cmm (157-399); Red Blood Count 3.91 10^6/uL (3.85-5.65); White Blood Count 29.12 10^3/uL (3.29-11.43); pH VBG 7.10 (7.32-7.42)
[2025-06-06 05:05] LABS: Alanine Aminotransferase 61 U/L (0-41); Albumin Level 2.7 g/dL (3.5-5.2); Alkaline Phosphatase 129 U/L (40-130); Anion Gap 21.2 (5-19); Aspartate Amino Transferase 86 U/L (0-40); Blood Urea Nitrogen 57 mg/dL (8-23); Calcium 7.6 mg/dL (8.5-10.5); Carbon Dioxide 17 mmol/L (22-29); Chloride 97 mmol/L (98-107); Creatinine Clr Calc Pharmacy 23.8269; Globulin 4.4 g/dL (1.3-4.6); Glucose 151 mg/dL (65-115); Osmolality Calculated 291 mOsm/kg (285-295); Potassium 4.2 mmol/L (3.5-5.1); Sodium 131 mmol/L (136-145); Total Protein 7.1 g/dL (6.6-8.7)
[2025-06-06 05:12] LABS: Slide Review Slide Review Perform
[2025-06-06 05:13] LABS: Lactic Sepsis W/Reflex 5.1 mmol/L (0.5-2.2)
[2025-06-06 05:14] LABS: Absolute Segmented Neutrophil 20.7 10/cmm (1.6-7.1); Atypical Lymphs 0.0 % (0-5); Band Neutrophils Absolute 7.0 10^3/cmm (0.0-1.2); Total Cells Counted 100 (0-100)
[2025-06-06 05:15] LABS: Anisocytosis Trace; Giant Platelets Trace
[2025-06-06 06:17] LABS: ABG PCO2 39.6 mmHg (35-45); ABG PH Result 7.22 (7.35-7.45); Arterial Blood Gas Hematocrit 37.7 % (42-52); Blood Gas Allen Test Pos; Blood Gas Sample Type Arterial; Carboxyhemoglobin 1.2 %THgb (0.4-20.1); Glucose Level-ABG 171.0 mg/dL (70-115); HCO3 ABG 16.4 mmol/L (22-26); Ionized Calcium Level - ABG 1.1 mmol/L (1.1-1.4); Methemoglobin 0.1 % (0.4-1.5); Oxygen Saturation ABG 96.8; PO2 ABG 86.0 mmHg (80.0-100.0); Potassium Level - ABG 4.2 mmol/L (3.5-5.0); Sodium Level - ABG 132.0 mmol/L (131-143)
[2025-06-06 06:18] LABS: Alveolar-Arterial Oxygen Gradi 16.1 mmHg (5-10); Blood Gas Operator Identificat MONRO; Blood Gas Sample Site Radial, right; PO2 FiO2 Ratio Arterial Blood 238
[2025-06-06 06:30] LABS: Reflex Lactate Order REFLEX LACTIC ORDERD
--- NOTE | 2025-06-06 07:41 | PC.NURSE ---
Report called to MARYJO Jacques at [facility]. Room #3323. Report #
[2025-06-06 08:02] LABS: Lactic Acid level (Lactate) 3.6 mmol/L (0.5-2.2)
--- NOTE | 2025-06-06 08:35 | PC.PHAR ---
Pt is from [facility]
[2025-06-06] MEDS: norepinephrine 4 MG/250 ML BAG 52.5 MG IV (09:15)
--- NOTE | 2025-06-06 09:53 | PC.NURSE ---
report given to [facility] @[phone]
--- NOTE | 2025-06-06 09:53 | PC.NURSE ---
full bag of Levophed sent with EMS
[2025-06-06 19:23] LABS: Bacillus cereus group Not Detected (NOT DETECT); Bacillus subtillis group Not Detected (NOT DETECT); Corynebacterium Not Detected (NOT DETECT); Cutibacterium acnes (P.acnes) Not Detected (NOT DETECT); Enterococcus faecalis Not Detected (NOT DETECT); Enterococcus faecium Not Detected (NOT DETECT); Listeria Not Detected (NOT DETECT); Micrococcus Not Detected (NOT DETECT); Pan Candida Not Detected (NOT DETECT); Pan Gram-Negative Detected (NOT DETECT); Staphylococcus epidermidis Not Detected (NOT DETECT); Staphylococcus lugdunensis Not Detected (NOT DETECT); Staphylococcus species Detected (NOT DETECT); Streptococcus anginosus group Not Detected (NOT DETECT); Streptococcus pyogenes Not Detected (NOT DETECT); Streptococcus species Not Detected (NOT DETECT); mecA Not Detected (NOT DETECT); mecC Not Detected (NOT DETECT)
--- NOTE | 2025-06-07 07:02 | PC.NURSE ---
called in positive blood culture to Raul at [facility] ICU. see report and bed number on previous note. positive blood culture 1/2 of proteus mirabilis staph. per lab, sensitivities still pending.
== END 2025-06-06 10:20 | disposition short-term general hospital (02) ==
PROVIDERS: Emergency Provider Student in an Organized Health Care Education/Training Program
DX: A41.9 Sepsis, unspecified organism (principal); R65.21 Severe sepsis with septic shock; N20.0 Calculus of kidney; E87.20 Acidosis, unspecified; N17.9 Acute kidney failure, unspecified; Z72.0 Tobacco use
CPT/HCPCS: 36415; 36556; 36600; 71045; 71250; 73600; 73630; 74176; 80051; 80053; 82330; 82803; 82805; 83605; 83690; 83735; 83880; 84145; 84484; 85007; 85025; 85610; 85730; 87040; 87077; 87150; 87186; 87205; 93005; 94640; 94660; 96365; 96366; 96367; 96375; 99291; J0692; J1720; J2919; J3373; J3475; J7030; J7120; J9999